=== PATIENT | female | born 2005 | race Caucasian/White ===

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

== ENCOUNTER 2024-05-31 23:22 | Emergency (ER) | payer OTHER, SELFPAY ==
--- OUTSIDE RECORDS SUMMARY | 2024-06-01 00:30 | XMS_ITS | Continuity of Care Document ---
Author Organization [facility] Address [address] [place] [id number]- Care Team Providers Care High School Football Coach Name Role Phone Heena Lopez MD Primary Care Physician Encounter [facility] Date(s): 05/29/22 - 07/11/[address] [address] Attending Physician: Not on Staff, Attending MD Referring Physician: Heena Lopez MD Allergies, Adverse Reactions, Alerts No Known Allergies Immunizations Given and Recorded Vaccine Date Status Refusal Reason influenza virus vaccine, inactivated 07/09/22 Give n Medications azithromycin 500 mg oral tablet 2 tablet = 1,000 mg, By Mouth, Once, # 2 tablet, 0 Refills, Soft Stop, 07/10/22 22:28:00 EDT, Tablet, [id number], Partial fill upon patient request if the prescription is for a schedule II opioid drug., 164.5, cm, 07/09/22 13:04:00 EDT, Height... Start Date: 07/10/22 Status: Ordered clotrimazole 1% topical cream 1 application, Topically, Daily at bedtime, # 45 Gm, 0 Refills, Maintenance, 07/10/22 13:16:00 EDT,Cream, [id number], Partial fill upon patient request if the prescription is for a schedule II opioid drug., 1 application Topically Daily at be... Start Date: 07/10/22 Stop Date: 07/17/22 Status: Ordered Expedited partner treatment: Azithromycin 1gm PO once Expedited partner treatment: Azithromycin 1gm PO once, See Instructions, # 1 each, Refills 0, Tot. Refills 0, Maintenance, Expedited partner treatment, 03/06/21 13:39:00 EDT, Supply Start Date: 03/06/21 Status: Ordered Multivitamins with Folic Acid 1 mg oral tablet 1 tablet, By Mouth, Daily, # 30 tablet, 0 Refills, Maintenance, 07/09/22 13:04:00 EDT, Tablet, Partial fill upon patient request if the prescription is for a schedule II opioid drug. Start Date: 07/09/22 Status: Ordered Problem List Condition Confirmation Course Effective Dates Status Health St atus Informant Confirmed Active Intrauterine in teenager Confirmed Active Maternal varicella, non-immune Confirmed Active Social History Social History Type Response Smoking Status Never (less than 100 in lifetime); Tobacco user in household: No entered on: 03/04/21 Sex Patient Care team information Personnel Name: Heena Lopez MD Address: Address: [address] [place] [address] [facility] [id number]
--- OUTSIDE RECORDS SUMMARY | 2024-06-01 00:30 | XMS_ITS | Continuity of Care Document ---
Author Organization [facility] Address [address] [place] [address]- Care Team Providers Care Spiritual Care Coordinator Name Role Phone Rounds Heena STANTON Primary Care Physician Encounter [facility] [place] Date(s): 10/17/21 - 10/17/[address] [address]- Discharge Disposition: A-D/C Walkout Attending Physician: Not on Staff, Attending MD Admitting Physician: Not on Staff, Admitting MD Referring Physician: Not on Staff, Referring MD Allergies, Adverse Reactions, Alerts No Known Allergies Medications Expedited partner treatment: Azithromycin 1gm PO once Expedited partner treatment: Azithromycin 1gm PO once, See Instructions, # 1 each, Refills 0, Tot. Refills 0, Maintenance, Expedited partner treatment, 03/06/21 13:39:00 EDT, Supply Start Date: 03/06/21 Status: Ordered Vital Signs Most recent to oldest [Reference Range]: 1 Oxygen Saturation [94-100 %] 99 % (10/17/21 3:07 AM) Pulse Rate [55-90 bpm] 75 bpm (10/17/21 3:07 AM) Blood Pressure [71-110/30-71 mm Hg] 124/ 81mm Hg *H* (10/17/21 3:07 AM) Respiratory Rate [16-30 br/min] 17 br/mi n (10/17/21 3:07 AM) Temperature [96.8-100.4 DegF] 98.7 DegF (10/17/21 3:07 AM) Mode of Delivery (Oxygen) Room air (10/17/21 3:07 AM) Blood pressure sites Arm, left (10/17/21 3:07 AM) Temperature Route Oral (10/17/21 3:07 AM) Social History Social History Type Response Smoking Status Never (less than 100 in lifetime); Tobacco user in household: No entered on: 03/04/21 Sex
--- OUTSIDE RECORDS SUMMARY | 2024-06-01 00:30 | XMS_ITS | Continuity of Care Document ---
Author Organization [facility] Address [address] [place] [phone]- Care Team Providers Care Senior Credit Officer Name Role Phone Rounds Heena STANTON Primary Care Physician Encounter [facility] [place] Date(s): 08/29/22 - 09/28/[address] [address] Allergies, Adverse Reactions, Alerts No Known Allergies [...] EDT, Height... Start Date: 07/10/22 Status: Ordered azithromycin 500 mg oral tablet 2 tablet = 1,000 mg, By Mouth, Daily, # 2 tablet, 0 Refills, Maintenance, 08/29/22 16:48:00 EST, Tablet, [id number], Partial fill upon patient request if the prescription is for a schedule IIopioid drug., 164.5, cm, 08/28/22 15:05:00 EST, Hei... Start Date: 08/29/22 Status: Ordered clotrimazole 1% topical cream 1 [...] EDT, Supply Start Date: 03/06/21 Status: Ordered ferrous sulfate 325 mg oral tablet 1 tablet = 325 mg, By Mouth, Daily, # 90 tablet, 1 Refills, Maintenance, 09/04/22 16:45:00 EST, Tablet, [facility]/pharmacy #[id number], Partial fill upon patient request if the prescription is for a schedule II opioid drug., 164.5, cm, 08/28/22 15:05:00 EST, Heig... Start Date: 09/04/22 Status: Ordered Multivitamins with Folic Acid 1 mg oral tablet 1 tablet = 1 mg, By Mouth, Daily, # 30 tablet, 3 Refills, Maintenance, 08/28/22 15:16:00 EST, Tablet, [facility] #[id number], Partial fill upon patient request if the prescription is for a schedule II opioid drug., 1 tablet By Mouth Daily, 164.5, cm, 08/09... Start Date: 08/28/22 Status: Ordered Tums 500 mg oral tablet, chewable 500 mg, 1, tablet, Chew, 2 times a day, # 65 tablet, Refills 3, Tot. Refills 3, Maintenance, 09/24/22 15:08:00 EST, Route to Pharmacy Electronically, [facility]/pharmacy #[id number], Partial fill upon patient request if the prescription is for a schedule II opioid... Start Date: 09/24/22 Status: Ordered Problem List Condition Confirmation Course Effective Dates Status Health St atus Informant Confirmed Active Intrauterine in teenager Confirmed Active Maternal varicella, non-immune Confirmed Active Social History Social History Type Response Smoking Status Never (less than 100 in lifetime); Tobacco user in household: No entered on: 03/04/21 Sex Female Patient Care team information Care Team Personnel Name: Heena Lopez MD Position: [facility] General Pediatrics MD Member Role: PCP Address: Address: [address] [place] [address] [place] [id number]- Care Team Related Persons Name: BERHANE VENTURA Address: home [address] [place] [address] Name: GREGOR VENTURA Address: [address] [place] [address]
--- OUTSIDE RECORDS SUMMARY | 2024-06-01 00:30 | XMS_ITS | Continuity of Care Document ---
Author Organization [facility] Address [address] [place] [id number]- Care Team Providers Care Oracle Obiee Developer Name Role Phone Rounds Heena STANTON Primary Care Physician Encounter [facility] [place] Date(s): 07/18/22 - 11/15/[address] [address] Attending Physician: Not on Staff, Attending MD Allergies, Adverse Reactions, Alerts No Known Allergies Immunizations Given and Recorded Vaccine Date Status Refusal Reason influenza virus vaccine, inactivated 07/09/22 Give n Medications Colace sodium 100 mg oral capsule 100 mg, 1, capsule, By Mouth, 2 times a day, PRN, # 20 capsule, Refills 0, Tot. Refills 0, Maintenance, for constipation, 10/30/22 6:43:00 EST, Route to Pharmacy Electronically, [facility]/pharmacy #[id number], Partial fill upon patient request if the prescription... Start Date: 10/30/22 Status: Ordered Multivitamins with Folic Acid 1 mg oral tablet 1 tablet = 1 mg, By Mouth, Daily, # 30 tablet, 3 Refills, Maintenance, 08/28/22 15:16:00 EST, Tablet, [facility]/pharmacy #[id number], Partial fill upon patient request if the prescription is for a schedule II opioid drug., 1 tablet By Mouth Daily, 164.5, cm, 08/09... Start Date: 08/28/22 Status: Ordered Tums 500 mg oral tablet, chewable 500 mg, 1, tablet, Chew, 2 times a day, # 65 tablet, Refills 3, Tot. Refills 3, Maintenance, 09/24/22 15:08:00 EST, Route to Pharmacy Electronically, [facility]/pharmacy #[id number], Partial fill upon patient request if the prescription is for a schedule II opioid... Start Date: 09/24/22 Status: Ordered Problem List Condition Confirmation Course Effective Dates Status Health St atus Informant Marginal insertion of umbilical cord affecting management of mother Confirmed Active Anemia Confirmed Active GERD (gastroesophageal reflux disease) Confirmed Active History of appendectomy Confirmed Active Late care Confirmed Active Marijuana smoker Confirmed Active Confirmed Active Confirmed Active Intrauterine in teenager Confirmed Active Maternal varicella, non-immune Confirmed Active Social History Social History Type Response Smoking Status Never (less than 100 in lifetime); Tobacco user in household: No entered on: 03/04/21 Sex Patient Care team information Care Team Personnel Name: Heena Lopez MD Position: [facility] General Pediatrics MD Member Role: PCP Address: Address: [address] [place] [address] [place] [address]- Care Team Related Persons Name: AGNIESZKA FRANCISCO Address: [facility] Address: home [address] [place] [address] Name: BERHANE EVNTURA Address: home [address] [place] [id number] Name: GREGOR VENTURA Address: [address] [address]
--- OUTSIDE RECORDS SUMMARY | 2024-06-01 00:30 | XMS_ITS | Continuity of Care Document ---
Author Organization [facility] Address [address] [place] [address]- Care Team Providers Care Taproom Attendant Name Role Phone Rounds Heena STANTON Primary Care Physician [phone] Encounter [facility] Date(s): 08/29/22 - 09/28/[address] [address] Allergies, Adverse Reactions, Alerts No Known [...] 1 Refills, Maintenance, 09/04/22 16:45:00 EST, Tablet, [id number], Partial fill upon patient request if the prescription is for a schedule II opioid drug., 164.5, cm, 08/28/22 15:05:00 EST, Heig... Start Date: 09/04/22 Status: Ordered Multivitamins with Folic Acid 1 mg oral tablet 1 tablet = 1 mg, By Mouth, Daily, # 30 tablet, 3 Refills, Maintenance, 08/28/22 15:16:00 EST, Tablet, [id number], Partial fill upon patient request if the prescription is for a schedule II opioid drug., 1 tablet By Mouth Daily, 164.5, cm, 08/09... Start Date: 08/28/22 Status: Ordered Tums 500 mg oral tablet, chewable 500 mg, 1, tablet, Chew, 2 times a day, # 65 tablet, Refills 3, Tot. Refills 3, Maintenance, 09/24/22 15:08:00 EST, Route to Pharmacy Electronically, [facility]/pharmacy #[id number], Partial fill upon patient request if [...] Team Personnel Name: Heena Lopez MD Position: [facility] General Pediatrics MD Member Role: PCP Address: Address: [address] [place] [address] [place] [address]- Care Team Related Persons Name: BERHANE VENTURA Address: home [address] [place] [id number] Name: GREGOR VENTURA Address: [address] [address]
--- OUTSIDE RECORDS SUMMARY | 2024-06-01 00:30 | XMS_ITS | Continuity of Care Document ---
Author Organization [facility] Address [address] [place] [address]- Care Team Providers Care Mental Health Worker Name Role Phone Rounds Heena STANTON Primary Care Physician [phone] Encounter [facility] Date(s): 08/22/21 - 09/21/[address] [address] Allergies, Adverse Reactions, Alerts No Known Allergies Medications Expedited partner treatment: Azithromycin 1gm PO once Expedited partner treatment: Azithromycin 1gm PO once, See Instructions, # 1 each, Refills 0, Tot. Refills 0, Maintenance, Expedited partner treatment, 03/06/21 13:39:00 EDT, Supply Start Date: 03/06/21 Status: Ordered Social History Social History Type Response Smoking Status Never (less than 100 in lifetime); Tobacco user in household: No entered on: 03/04/21 Sex
--- OUTSIDE RECORDS SUMMARY | 2024-06-01 00:30 | XMS_ITS | Continuity of Care Document ---
Author Organization [facility] ter Address [address] [place] [phone]- Care Team Providers Care Base Loader Name Role Phone Rounds Heena STANTON Primary Care Physician Encounter [facility] [place] Date(s): 02/03/23 - 02/03/[address] [address]- Discharge Disposition: A-D/C Walkout Attending Physician: Not [...] 10/30/22 6:43:00 EST, Route to [facility]acy Electronically, [id number], Partial fill upon patient request [...] 09/24/22 15:08:00 EST, Route to Pharmacy Electronically, [id number], Partial fill upon patient request [...] Confirmed Active Maternal varicella, non-immune Confirmed Active Vital Signs Most recent to oldest [Reference Range]: 1 2 3 Oxygen Saturation [94-100 %] 99 % (02/03/23 12:30 PM) 98 % (02/03/23 10:29 AM) 97 % (02/03/23 10:25 AM) Pulse Rate [55-90 bpm] 100 bpm *H* (02/03/23 12:30 PM) 97 bpm *H* (02/03/23 10:29 AM) 114 bpm *H* (02/03/23 10:25 AM) Blood Pressure [90-138/55-84 mm Hg] 135/80mm Hg (02/03/23 12:30 PM) 130/83mm Hg (02/03/23 10:29 AM) Respiratory Rate [16-30 br/min] 18 br/min (02/03/23 12:30 PM) 17 br/min (02/03/23 10:29 AM) 18 br/min (02/03/23 10:25 AM) Temperature [96.8-100.4 DegF] 97.9 DegF (02/03/23 12:30 PM) 97.7 DegF (02/03/23 10:29 AM) Mode of Delivery (Oxygen) Room air (02/03/23 12:30 PM) Room air (02/03/23 10:29 AM) Room air (02/03/23 10:25 AM) Blood pressure sites Arm, right (02/03/23 12:30 PM) Arm, right (02/03/23 10:29 AM) Temperature Route Oral (02/03/23 12:30 PM) Oral (02/03/23 10:29 AM) Social History Social History Type Response Smoking Status Never (less than 100 in lifetime); Tobacco user in household: No entered on: 03/04/21 Sex Patient Care team information Care Team Personnel Name: Heena Lopez MD Position: [facility] General Pediatrics MD Member Role: PCP Address: Address: [address] [place] [address] [place] [address]- Care Team Related Persons Name: AGNIESZKA FRANCISCO Address: AMER[employer] Address: home [address] [place] [address] [place] Name: BERHANE VENTURA Address: home [address] [place] [address] Name: GREGOR VENTURA Address: home [address] [place] [address]
--- OUTSIDE RECORDS SUMMARY | 2024-06-01 00:30 | XMS_ITS | Continuity of Care Document ---
Author Organization [facility] Address [address] [place] [address]- Care Team Providers Care Paediatric Surgeon Name Role Phone Rounds Heena STANTON Primary Care Physician [place] [facility] [place] - 11/29/[address] [address] Attending Physician: Not on Staff, Attending [...] 10/30/22 6:43:00 EST, Route to Pharmacy Electronically, [facility]/pharmacy #[id number], Partial fill upon patient request if the prescription... Start Date: 10/30/22 Status: Ordered Multivitamins with Folic Acid 1 mg oral tablet 1 tablet = 1 mg, By Mouth, Daily, # 30 tablet, 3 Refills, Maintenance, 08/28/22 15:16:00 EST, Tablet, [facility]/pharmacy #[id number], Partial fill upon patient request if the prescription is for a schedule II opioid drug., 1 tablet By Mouth Daily, 164.5, cm, 08/09... Start Date: 08/28/22 Status: Ordered Tums 500 mg oral tablet, chewable 500 mg, 1, tablet, Chew, 2 times a day, # 65 tablet, Refills 3, Tot. Refills 3, Maintenance, 09/24/22 15:08:00 EST, Route to Pharmacy Electronically, [facility]/pharmacy #[id number], Partial fill upon patient request [...] Team Personnel Name: Heena Lopez MD Position: [facility] General Pediatrics MD Member Role: PCP Address: Address: [address] [place] [address] [place] [address]- Care Team Related Persons Name: AGNIESZKA FRANCISCO Address: AMER[employer] Address: home [address] [place] [address] Name: BERHANE VENTURA Address: home [address] [place] [id number] Name: GREGOR VENTURA Address: [address] [address]
--- OUTSIDE RECORDS SUMMARY | 2024-06-01 00:31 | XMS_ITS | Continuity of Care Document ---
Author Organization [facility] Address [address] [place] [address]- Care Team Providers Care Dough Catcher Name Role Phone Rounds Heena STANTON Primary Care Physician [phone] [place] [facility] [place] 12/06/[address] [address] Attending Physician: Not on Staff, [...] 10/30/22 6:43:00 EST, Route to Pharmacy Electronically, [facility]/pharmacy #[id number], Partial fill upon patient request if the prescription... Start Date: 10/30/22 Status: Ordered Multivitamins with Folic Acid 1 mg oral tablet 1 tablet = 1 mg, By Mouth, Daily, # 30 tablet, 3 Refills, Maintenance, 08/28/22 15:16:00 EST, Tablet, [facility]/pharmacy #[id number], Partial fill upon patient request if the prescription is for a schedule II opioid drug., 1 tablet By Mouth Daily, 164.5, cm, 08/09... Start Date: 08/28/22 Status: Ordered Tums 500 mg oral tablet, chewable 500 mg, 1, tablet, Chew, 2 times a day, # 65 tablet, Refills 3, Tot. Refills 3, Maintenance, 09/24/22 15:08:00 EST, Route to Pharmacy Electronically, [facility]/pharmacy #[id number], Partial fill upon patient request [...] Team Personnel Name: Heena Lopez MD Position: [facility] General Pediatrics MD Member Role: PCP Address: Address: [address] [place] [address] [place] [address]- Care Team Related Persons Name: AGNIESZKA FRANCISCO Address: [employer] Address: home [address] [place] [address] Name: BERHANE VENTURA Address: home [address] [place] [address] Name: GREGOR VENTURA Address: [address] [address]
--- OUTSIDE RECORDS SUMMARY | 2024-06-01 00:31 | XMS_ITS | Continuity of Care Document ---
Author Organization [facility] Address [address] [place] [address]- Care Team Providers Care Division Supervisor Name Role Phone Rounds Heena STANTON Primary Care Physician [place] [facility] [place] [facility] [place] 03/26/22 - 04/25/[address] [address]- Attending Physician: Fernanda Chou Admitting Physician: Fernanda Chou Referring Physician: AdmtrFernanda Allergies, Adverse Reactions, Alerts No Known Allergies Medications Expedited partner treatment: Azithromycin 1gm PO once Expedited partner treatment: Azithromycin 1gm PO once, See Instructions, # 1 each, Refills 0, Tot. Refills 0, Maintenance, Expedited partner treatment, 03/06/21 13:39:00 EDT, Supply Start Date: 03/06/21 Status: Ordered Unisom 25 mg oral tablet 1 tablet = 25 mg, By Mouth, Daily, 15 to 30 minutes before bed, # 30 tablet, 1 Refills, Acute 05/20/22 14:40:00 EDT, 03/19/22 14:40:00 EDT, Tablet, [id number], Partial fill upon patient request if the prescription is for a schedule II opioid d... Start Date: 03/19/22 Stop Date: 05/20/22 Status: Ordered Vitamin B6 25 mg oral tablet 1 tablet = 25 mg, By Mouth, 3 times a day, # 100 tablet, 1 Refills, Acute 05/20/22 14:41:00 EDT, 03/19/22 14:40:00 EDT, [id number], Partial fill upon patient request if the prescription is for a schedule II opioid drug., 164.5, cm, 03/06/21 12... Start Date: 03/19/22 Stop Date: 05/20/22 Status: Ordered Social History Social History Type Response Smoking Status Never (less than 100 in lifetime); Tobacco user in household: No entered on: 03/04/21 Sex
--- OUTSIDE RECORDS SUMMARY | 2024-06-01 00:31 | XMS_ITS | Continuity of Care Document ---
Author Organization [facility] Address [address] [place] [address]- Care Team Providers Care Compensation Advisor Name Role Phone Rounds Heena STANTON Primary Care Physician [phone] En[place] [facility] [place] Date(s): 10/30/22 - 01/22/[address] [address] Attending Physician: Not on Staff, Attending MD Admitting Physician: Eileen Laughlin CNM Allergies, Adverse Reactions, Alerts No Known Allergies Immunizations Given and Recorded Vaccine Date Status Refusal Reason influenza virus vaccine, inactivated 07/09/22 Give n Medications Colace sodium 100 mg oral capsule 100 mg, 1, capsule, By Mouth, 2 times a day, PRN, # 20 capsule, Refills 0, Tot. Refills 0, Maintenance, for constipation, 10/30/22 6:43:00 EST, Route to Pharmacy Electronically, [facility]/pharmacy #[id number], Partial fill upon patient [...] 09/24/22 15:08:00 EST, Route to Pharmacy Electronically, [facility]/pharmacy #[id number], Partial fill upon patient request if the [...] Team Personnel Name: Heena Lopez MD Position: [facility] General Pediatrics MD Member Role: PCP Address: Address: [address] [place] [address] [place] [address]- Care Team Related Persons Name: AGNIESZKA FRANCISCO Address: [employer] Address: [address] [address] [place] Name: BERHANE VENTURA Address: home [address] [place] [address] Name: GREGOR VENTURA Address: [address] [address]
--- OUTSIDE RECORDS SUMMARY | 2024-06-01 00:31 | XMS_ITS | Continuity of Care Document ---
Author Organization [facility] Address [address] [place] [address]- Care Team Providers Care Visual Aid Expert Name Role Phone Rounds Heena STANTON Primary Care Physician Encounter [facility] [place] Date(s): 02/26/22 - 04/25/[address] [address]- Attending Physician: Not on Staff, Attending MD [...]
--- OUTSIDE RECORDS SUMMARY | 2024-06-01 00:31 | XMS_ITS | Continuity of Care Document ---
Author Organization [facility] ter Address [address] [place] [address]- Care Team Providers Care Outer Diameter Grinder Tool Name Role Phone Rounds Heena STANTON Primary Care Physician [place] [facility] [place] - 08/14/[address] [address]- Discharge Disposition: A-D/C Home Attending Physician: Danna Smith MD Admitting Physician: Danna Smith MD Referring Physician: Danna Smith MD Allergies, Adverse Reactions, Alerts No Known [...] recent to oldest [Reference Range]: 1 2 Weight 80.7 kg (08/14/22 4:03 PM) Oxygen Saturation [94-100 %] 100 % (08/14/22 4:16 PM) Pulse Rate [55-90 bpm] 92 bpm *H* (08/14/22 4:16 PM) Blood Pressure [90-138/55-84 mm Hg] 111/ 66mm Hg (08/14/22 4:16 PM) Respiratory Rate [16-30 br/min] 20 br/mi n (08/14/22 4:16 PM) Temperature [96.8-100.4 DegF] 98 DegF (08/14/22 4:16 PM) 98.1 DegF (08/14/22 4:03 PM) Temperature Route Oral (08/14/22 4:16 PM) Oral (08/14/22 4:03 PM) Weight Obtained Via Standing scale (08/14/22 4:03 PM) Weight Percentile Per Age 94.41 % 1 (08/14/22 4:03 PM) Weight ZScore 1.59 2 (08/14/22 4:03 PM) 1Result Comment: ^~:!Percentile Source -CDC/WHO 2Result Comment: ^~:!ZScore Source -CDC/WHO Social History Social History Type Response Smoking Status Never (less than 100 in lifetime); Tobacco user in household: No entered on: 03/04/21 Sex History and physical note * Nitza Rodas CNM: PERFORM Event Display: History and Physical Hospital Authored Date: Patient: ??RIVERA, DIYANNE ? Age:??17 Years?Sex:??Female?:??2005?? OB Reason for Admission OB Reason for Admission?? No qualifying data available. LMP/EGA/ANISH Gestational Age (EGA) and ANISH? * Note: EGA calculated as of 08/14/2022 ?? ANISH:??11/02/2022?EGA*:??28 weeks 4 days ? History?(0,0,0,0)?Method:??Last Menstrual Period??(01/26/2022) History of Present Illness pt here for dfm. pt also reported spotting but that was several days ago when she was diagnoses with yeast.?? She has not had any further spotting or cramping since then. Review of Systems ros all negative except as above Physical Exam Vitals & Measurements T:??98?F ?? DC:??92?? RR:??20?? BP:??111/66?? SpO2:??100%?? WT:??80.7??kg? General: ??Within normal limits.? Abdomen/GI: ??Within normal limits,? Abdomen Description: Gravid, Non-tender.? Musculoskeletal: ??Within normal limits. ?? Extremities: ??Within normal limits, Extremities, 2+ Reflexes, no clonus ? Edema: Upper Extremities, Lower Extremities.? OB Assessment Non Stress Test ?? Baby:??A Heart Rate: Rate??135 bpm Variability:??Moderate Acceleration:??Present Deceleration:??Absent Contractions:??none ?? Comments: _ Assessment/Plan a-s=d ? reactive nst, dfm resolved ? obstetrically stable p-nst ? discussed normal vs abnormal warning s & sx and when to call provider ? pt to keep next appt ? discussed with dr sheridan and discharge pt to home OB History History?(0,0,0,0)?No previous pregnancies history have been recorded Labs Labs Labs & Tests ABO: O (05/29/22) Antibody Screen: Negative (05/29/22) Chlamydia Trachomatis Amplified Probe: POSITIVE Abnormal (07/09/22) Hct: 35.9 % (05/29/22) Hemoglobinopathy Interpretation: Normal hemoglobins. (05/29/22) Hepatitis B Surface Antigen: NEGATIVE (05/29/22) Hepatitis C Ab: NEGATIVE (05/29/22) Hgb: 12 Gm/dL (05/29/22) HIV 4th Generation Ab-Ag Result: NEGATIVE (05/29/22) RH Test Only: Positive (05/29/22) RPR Titer Result: NOT INDICATED (05/29/22) Rubella IgG Ab: POSITIVE (05/29/22) Syphilis Screen by ALEX: NEGATIVE (05/29/22) Urine Culture: Urine Culture (05/29/22) Varicella IgG Ab: NEGATIVE (05/29/22) Problem List Active Active Problem List Intrauterine in teenager: (Medical) Maternal varicella, non-immune: (Medical) : (Obstetric) (01/26/22) : (Medical) Procedure/Surgical History Appendectomy: 03 Home Medications Azithromycin: 1,000 mg = 2 tablet, By Mouth, Once Clotrimazole Topical: 1 application, Topically, Daily at bedtime Miscellaneous Rx (Expedited partner treatment: Azithromycin 1gm PO once): See Instructions, Expedited partner treatment Multivitamin, : 1 tablet, By Mouth, Daily Allergies NKA Social History Alcohol Use: Never., 03/04/2021 Electronic Cigarette/Vaping Electronic Cigarette Use: Never., 05/29/2022 Employment/School Status: Student. Other: [employer]., 05/29/2022 Exercise Self assessment: Fair condition., 05/29/2022 Home/Environment Living situation: Home/Independent. Lives with: Significant other. Feels unsafe at home: No., 05/29/2022 Nutrition/Health Diet: Regular., 05/29/2022 Sexual Sexually involved in last 6 months: Yes., 03/04/2021 Substance Abuse Use: pt stopped 3 days ago. Type: Marijuana. Frequency: 3-5 times per week., 03/04/2021 Tobacco Use: Never (less than 100 in lifetime). Tobacco user in household: No., 03/04/2021 Family History No positive family history reported. Plan No Data Found Note * Kassidy Newberry RN: PERFORM Event Display: Discharge/Transfer Note Hospital Authored Date: [id number] Nursing Discharge Note Entered On: 08/14/2022 18:28 EST Performed On: 08/14/2022 18:28 EST by Kassidy Newberry RN Nursing Discharge Note 2 Discharge Time : 08/14/2022 18:28 EST Discharge Level of Care at Discharge : Home/Half-Way/Foster Care Patient Left Unit Via : Ambulatory Patient Accompanied Off Unit with : Other: self DC Instructions Provided & Signed by Pt : Yes Patient Understands D/C Instructions : Yes Patient Instructions Discharge Signed : Yes Did Pt have Specialty Bed or Wound Vac : No Kassidy Newberry RN - 08/14/2022 18:28 EST * Kassidy Newberry RN: PERFORM Event Display: Patient Education/Instruction Authored Date: [id number] Inpatient Adult Discharge Instructions [address] [address] Name: SCOTTY RIVERA : 2005 Visit: 08/14/2022 15:29:00 Current Date: 08/14/2022 18:05 Account: [id number] Inpatient Adult Discharge Instructions We would like to thank you for allowing us to assist you with your healthcare needs. The following includes patient education materials and information regarding your injury/illness. Our entire staffstrives to provide an excellent experience for our patients and their families. PLEASE ENSURE YOU FOLLOW-UP PER THE INSTRUCTIONS BELOW! ?? YOUR OPINION IS IMPORTANT TO US! Please complete the survey you may receive by mail or email. Your feedback will be used to make improvements to the healthcare experiences of our patients and their families. Surveys are administered by [employer] ?? If further treatment with your primary care physician or another doctor is recommended, it is important for you to keep the appointment. Call your primary care physician or return to the Emergency Department immediately if your condition worsens, fails to improve, or new symptoms develop. If you need to find a doctor, you can call [facility] for a referral at [phone] or toll free at [phone] ([phone]) or log in to [email or web address].. ?? You can view and manage your care through the patient portal or by using a health care eugenia of your choosing. [employer] is a website that allows you to securely view your medical information including your hospital discharge summary, office visit summaries, medications and follow-up visits. You can also request appointments, renew medications, and request access to your medical information using a health care eugenia of your choosing, or just ask a question. You can enroll at [email or web address] or register during your next office visit. You have been discharged from [facility], Patient Care Unit: [id number]. If you have any questions regarding these instructions after you leave, please call us and we will be happy to assist you. [facility] Your Care Team Attending Physician Luis STANTON, Danna Fernandez Tests Performed Below is a partial list of the tests performed during your hospitalization. You may have had other tests and procedures not included in this list. Please discuss all test results with your provider. Primary Care Provider Heena Lopez MD Advance Directive Health Care Proxy on File No No qualifying data available. Discharge Vitals Temperature: 98 DegF Weight: 80.7 kg Pulse Rate:??92 bpm??High ?? Respiratory Rate: 20 br/min ?? Systolic Blood Pressure: 111 mm Hg ?? Diastolic Blood Pressure: 66 mm Hg ?? Oxygen Saturation: 100 % ?? Studies Pending All tests and labs ordered during this hospital stay have been completed unless listed below. Please discuss all pending results with your provider listed above in these instructions. ?? No incomplete studies found What to do next Instructions From Your Doctor Discharge Orders Scheduled Follow-Up Appointments 2021 1:00 PM EST ?? With: Maura Gold MD Where: [address] - Friday 2:40 PM EST ?? With: Where: [address] - Friday 2:20 PM EST ?? With: Liliya Ervin DO Where: [address] - Friday 2:40 PM EST ?? With: Liliya Ervin DO Where: [address] - Friday 2:40 PM EST ?? With: Francy Sorensen DO Where: [address] - Friday 3:00 PM EST ?? With: Colleen Hanley CNM Where: [address] - Friday 1:40 PM EST ?? With: Colleen Hanley CNM Where: [address] - Friday 1:20 PM EST ?? With: Colleen Hanley CNM Where: [address] - Discharge Medications SCOTTY RIVERA :2005 Visit Date:08/14/2022 Medications: Please continue your medications until treatment is completed or stopped by your provider. Medications not listed below should be discontinued. Discuss any questions related to medications with your provider. What How Much When Why Instructions Next Dose Unchanged Azithromycin (azithromycin 500 mg oral tablet) 2 tab(s) Oral Once Chlamydia Unchanged Clotrimazole Topical (clotrimazole 1% topical cream) 1 eugenia Topically Daily at Bedtime Yeast detected Duration: 7 Days Unchanged Miscellaneous Rx (Expedited partner treatment: Azithromycin 1gm PO once) See instructions Expedited partner treatment ?? Unchanged Multivitamin, ( Multivitamins with Folic Acid 1 mg oral tablet) 1 tab(s) Oral Daily Test Results Below is a partial list of the most recent Laboratory test results done prior to this discharge. You may have had other tests and procedures not included in this list. Please discuss all test resultswith your provider. Allergies (NKA means No Known Allergies) NKA Problems Active Problems??(4) Intrauterine in teenager?? Maternal varicella, non-immune? Education Materials Below is the list of Educational Leaflet Providered with your Discharge Instructions. Understanding Labor?? Kick Counts?? Valuables and Belongings I fully understand and agree that [facility] accepts no responsibility for all my personal property including clothing, toilet articles, radios, jewelry, dentures, hearing aids, rings, money, or any other property that is in my possession or is brought to me after admission. I understand certain valuables may be placed in a hospital safe for a short period of time. I understand that the hospital is not liable for loss or damage due to accident, fire, or other natural occurrence while said property is in the safe. I accept full responsibility for any personal property that I keep with me, and will not hold the hospital responsible in case of loss or disappearance. I acknowledge that i have been encouraged to send valuables and belongings home. ? Other Discharge Information ? Pulmonary Rehab Status?? Pulmonary Rehab Discharge Status?? Respiratory Rate: 20 br/min ? Common Emergency Awareness Tips IS IT A STROKE? Act FAST and Check for these signs: FACE Does the face look uneven? ARM Does one arm drift down? SPEECH Does their speech sound strange? TIME Call at any sign of stroke ?? Heart Attack Signs Chest discomfort: Most heart attacks involve discomfort in the center of the chest and lasts more than a few minutes, or goes away and comes back. It can feel like uncomfortable pressure, squeezing, fullness or pain. Discomfort in upper body: Symptoms can include pain or discomfort in one or both arms, back, neck, jaw or stomach. Shortness of breath: With or without discomfort. Other signs: Breaking out in a cold sweat, nausea, or lightheaded. Remember, MINUTES DO MATTER. If you experience any of these heart attack warning signs, call to get immediate medical attention! ?? Smoking can increase your chances of developing chronic health problems and can cause harmful effects to other family members in your house. If you smoke, you are strongly encouraged to quit. Please call [facility] [employer] Link at [phone] or [phone] (8928) or log in to [email or web address] for referrals to smoking cessation programs. ?? The National Suicide Prevention Hotline is available 31/03 if you or someone you know needs to find a reason to keep living. By calling 9-799-097-[employer] (2013) you'll be connected to a skilled, trained counselor at a crisis center in your area. INPATIENT DISCHARGE INSTRUCTIONS SIGNATURE PAGE SCOTTY RIVERA Location:[facility] Registration Date and Time:08/14/2022 15:29 EST Primary Care Physician: Heena Lopez MD, I SCOTTY RIVERA, have received the above patient education materials/instructions and have verbalized understanding. If ambulance or transport services are being used I further acknowledge beinggiven a choice of service. ?? If you need to contact me, please call me at this number: . Patient/Structural Engineering Drafting Officer Name: Patient/Structural Engineering Drafting Officer Signature: Relationship to Patient: Witness Name/Signature: Date: * Kassidy Newberry RN: PERFORM Event Display: Patient Education Leaflets Authored Date: [id number] Understanding Labor ?? 10915 Understanding Labor Going into labor before week 37 of is called labor. labor can cause your baby to be born too soon. This can lead to health problems for your baby. Before labor, the cervix is thick and closed. In labor, the cervix begins to efface (thin) and dilate (open). Symptoms of labor If you think you???re having labor, get medical help right away. Contractions alone don???tmean you???re in labor. What matters more are changes in your cervix. The cervix is the opening at the lower end of the uterus. Symptoms of labor include: ??? 4 or more contractions per hour ??? Strong contractions ??? Constant menstrual-like cramping ??? Low-back pain ??? Mucous orbloody fluid from the vagina ??? Bleeding or spotting in the second or third trimester ?? Evaluating labor Your??healthcare provider??will try to find out if you???re in labor or just having contractions. They may watch you for a few hours. You may have these tests: ??? Pelvic exam. This is??to see if your cervix has effaced (thinned) and dilated (opened). ??? Uterine activity monitoring. This is used??to detect contractions. ??? monitoring. This is??done to check the health of your baby. ??? Ultrasound. This test looks at your baby???s size and position. ??? Amniocentesis. This test??checks how mature your baby???s lungs are. ?? Caring for yourself at home If you have contractions, but your cervix is still thick and closed, your healthcare provider may tell you to: ??? Drink plenty of water. ??? Do fewer activities. ??? Rest in bed on your side. ??? Don't have intercourse or stimulate your nipples. ?? When to call your healthcare provider Call your healthcare provider if you have any of these: ??? 4 or more contractions per hour ??? Bagof water breaks ??? Bleeding or spotting ?? If you need hospital care labor often means that you need hospital care. You may need complete bed rest. You may havean IV (intravenous) line in your arm or hand. This is to give you fluids. You may be given pills orinjections. These are done to help prevent contractions. You may get a medicine called a corticosteroid.??This is to help your baby???s lungs mature more quickly. ?? Are you at risk? Any woman can have labor. It may start for no reason. But these risk factors can increase your chances: ??? Past labor or early ??? Smoking, drug, or alcohol use in ??? A multiple (twins or more) ??? Problems with the shape of the uterus ??? Bleeding during the ?? The dangers of A baby born too soon may have health problems. This is because the baby didn???t have enough time to grow. Some of the risks for your baby include: ??? Not or feeding well ??? Having immature lungs ??? Bleeding in the brain ? Reaching term Your goal is to get as close to term (week 37 or later) as you can before giving . The closer you get to term, the??higher your chance of having a healthy baby. Work with your healthcare provider. Together, you can take steps that may keep you from giving too early. ?? Last Reviewed Date: 2021 ?? 9521-3961 [employer]. All rights reserved. This information is not intended as a substitute for professional medical care. Always follow your healthcare professional's instructions. ?? * Kassidy Newberry RN: PERFORM Event Display: Patient Education Leaflets Authored Date: [id number] Kick Counts ?? 14038 Kick Counts It???s normal to worry about your baby???s health. One way you can know??your baby???s doing well is to record the baby???s movements once a day. This is called a kick count. ??Remember to take your kick count records to all your appointments with your healthcare provider. How to count kicks Time how long it takes you to feel 10 kicks, flutters, swishes, or rolls. Ideally, you want to feelat least 10 movements in 2 hours. You will likely feel 10 movements in less time than that. Starting at 28 weeks, count your baby's movements daily. Follow your healthcare provider's instructions for kick counting. Here are tips for counting kicks: ??? Choose a time when the baby is active,such as after a meal.? Sit comfortably or lie on your side.? The first time the baby moves,??write down??the time.? Count each movement until the baby has moved?? 10??times. This can take from 20 minutes to 2??hours.? If you haven't felt 10 kicks by the end of the second hour, wait a few hours. Then try again. ??? Try to do it at the same time each day. ?? When to call your healthcare provider Call your healthcare provider?? right away??if: ??? You do a couple sets of kick counts during the day and your baby moves fewer than 10??times in??2??hours. ??? Your baby moves much less often than on the??days before. ??? You haven't felt your baby move all day. ?? Last Reviewed Date: 2020 ?? [id number] [employer]. All rights reserved. This information is not intended as a substitute for professional medical care. Always follow your healthcare professional's instructions. ?? Patient Care team information Care Team Personnel Name: Heena Lopez MD Position: [facility] General Pediatrics Member Role: PCP Address: Address: [address] [place] [address] [place] [address]- Care Team Related Persons Name: BERHANE VENTURA Address: home [address] [place] [address] Name: GREGOR VENTURA Address: [address] [address]
--- OUTSIDE RECORDS SUMMARY | 2024-06-01 00:31 | XMS_ITS | Continuity of Care Document ---
Author Organization [facility] Address [address] [place] [address]- Care Team Providers Care Dock Operations Supervisor Name Role Phone Rounds Heena STANTON Primary Care Physician Encounter [facility] [place] Date(s): 03/19/22 - 04/18/[address] [address]- Allergies, Adverse Reactions, Alerts No Known Allergies [...]
--- OUTSIDE RECORDS SUMMARY | 2024-06-01 00:31 | XMS_ITS | Continuity of Care Document ---
Author Organization [facility] Address [address] [place] [address]- Care Team Providers Care Call Manager Name Role Phone Rounds Heena STANTON Primary Care Physician [place] [facility] [place] - 09/28/[address] [address] Allergies, Adverse Reactions, Alerts No Known Allergies [...] 1 Refills, Maintenance, 09/04/22 16:45:00 EST, Tablet, [facility]/pharmacy #[id number], Partial fill upon patient request if the prescription is for a schedule II opioid drug., 164.5, cm, 08/28/22 15:05:00 EST, Heig... Start Date: 09/04/22 Status: Ordered Multivitamins with Folic Acid 1 mg oral tablet 1 tablet = 1 mg, By Mouth, Daily, # 30 tablet, 3 Refills, Maintenance, 08/28/22 15:16:00 EST, Tablet, [facility]/pharmacy #[id number], Partial fill upon patient request if the prescription is for a schedule II opioid drug., 1 tablet By Mouth Daily, 164.5, cm, 08/09... Start Date: 08/28/22 Status: Ordered Tums 500 mg oral tablet, chewable 500 mg, 1, tablet, Chew, 2 times a day, # 65 tablet, Refills 3, Tot. Refills 3, Maintenance, 09/24/22 15:08:00 EST, Route to Pharmacy Electronically, [facility]/pharmacy #[id number], Partial fill upon patient request [...] Personnel Name: Heena Lopez MD Position: [facility] General Pediatrics MD Member Role: PCP Address: Address: [address] [place] [address] [place] [address]- Care Team Related Persons Name: BERHANE VENTURA Address: home [address] [place] [address] Name: GREGOR VENTURA Address: [address] [place] [address]
--- OUTSIDE RECORDS SUMMARY | 2024-06-01 00:31 | XMS_ITS | Continuity of Care Document ---
Author Organization [facility] Address [address] [place] [address]- Care Team Providers Care Gravure Press Operator Name Role Phone Rounds Heena STANTON Primary Care Physician [place] [facility] [place](s[place] 12/24/22 - 01/31/[address] [address] Attending Physician: Eileen Laughlin CNM Admitting Physician: Eileen Laughlin CNM Allergies, Adverse [...] 10/30/22 6:43:00 EST, Route to Pharmacy Electronically, [facility]/pharmacy #[id number], Partial fill upon patient [...] 09/24/22 15:08:00 EST, Route to Pharmacy Electronically, [facility]/pharmacy #[id number], Partial fill upon patient request if the [...] Team Personnel Name: Heena Lopez MD Position: [facility] General Pediatrics MD Member Role: PCP Address: Address: [address] [place] [address] [place] [address]- Care Team Related Persons Name: AGNIESZKA FRANCISCO Address: [employer] Address: [address] [address] [place] Name: BERHANE VENTURA Address: [address] [address] Name: GREGOR VENTURA Address: [address] [address]
--- OUTSIDE RECORDS SUMMARY | 2024-06-01 00:31 | XMS_ITS | Continuity of Care Document ---
Author Organization [facility] Address [address] [address]- Care Team Providers Care Tax Revenue Officer Name Role Phone Rounds Heena STANTON Primary Care Physician [phone] [place] [facility] [place] 07/10/22 - 08/09/22 [facility] [address] [address] Allergies, Adverse Reactions, Alerts No [...] Personnel Name: Heena Lopez MD Position: [facility] General Pediatrics MD Member Role: PCP Address: Address: [address] [place] [address] [place] [address]- Care Team Related Persons Name: BERHANE VENTURA Address: home [address] [place] [address] Name: GREGOR VENTURA Address: [address] [address]
--- OUTSIDE RECORDS SUMMARY | 2024-06-01 00:31 | XMS_ITS | Continuity of Care Document ---
Author Organization [facility] Address [address] [place] [address]- Care Team Providers Care Ophthalmic Medical Technician Name Role Phone Rounds Heena STANTON Primary Care Physician Encounter [facility] Date(s): 06/13/22 - 07/26/[address] [address]- Attending Physician: Kathy Dawson CNM Admitting Physician: Kathy Dawson CNM Referring Physician: Raisa Mohr CNM Allergies, Adverse Reactions, Alerts No Known [...] Team Personnel Name: Heena Lopez MD Position: [facility] General Pediatrics MD Member Role: PCP Address: Address: [address] [place] [address] [place] [address]- Care Team Related Persons Name: BERHANE VENTURA Address: home [address] [place] [address] Name: GREGOR VENTURA Address: home [address] [place] [address]
--- OUTSIDE RECORDS SUMMARY | 2024-06-01 00:31 | XMS_ITS | Continuity of Care Document ---
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 Refills 0, Maintenance, for constipation, 10/30/22 6:43:00 EST, Route to Pharmacy Electronically, [facility]/pharmacy #[id number], Partial fill upon patient request if the prescription... Start Date: 10/30/22 Status: Ordered Multivitamins with Folic Acid 1 mg oral tablet 1 tablet = 1 mg, By Mouth, Daily, # 30 tablet, 3 Refills, Maintenance, 08/28/22 15:16:00 EST, Tablet, [facility]/pharmacy #[id number], Partial fill upon patient request if the prescription is for a schedule II opioid drug., 1 tablet By Mouth Daily, 164.5, cm, 08/09... Start Date: 08/28/22 Status: Ordered Tums 500 mg oral tablet, chewable 500 mg, 1, tablet, Chew, 2 times a day, # 65 tablet, Refills 3, Tot. Refills 3, Maintenance, 09/24/22 15:08:00 EST, Route to Pharmacy Electronically, [facility]/pharmacy #[id number], Partial fill upon patient request if [...] Team Personnel Name: Heena Lopez MD Position: [facility] General Pediatrics MD Member Role: PCP Address: Address: [address] [place] [address] [place] [address]- Care Team Related Persons Name: AGNIESZKA FRANCISCO Address: [employer] Address: [address] [address] [place] Name: BERHANE VENTURA Address: [address] [address] Name: GREGOR VENTURA Address: [address] [address]
--- OUTSIDE RECORDS SUMMARY | 2024-06-01 00:31 | XMS_ITS | Continuity of Care Document ---
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
--- OUTSIDE RECORDS SUMMARY | 2024-06-01 00:31 | XMS_ITS | Continuity of Care Document ---
Author Organization [facility] Address [address] [place] [address]- Care Team Providers Care Horse Racing Manager Name Role Phone Rounds Heena STANTON Primary Care Physician [phone] [place] [facility] Date(s): 08/14/22 - 09/13/[address] [address] Allergies, Adverse Reactions, Alerts No Known [...] cm, 08/09... 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
--- OUTSIDE RECORDS SUMMARY | 2024-06-01 00:31 | XMS_ITS | Continuity of Care Document ---
Author Organization [facility] Address [address] [place] [address]- Care Team Providers Care Nipple Machine Operator Name Role Phone Rounds Heena STANTON Primary Care Physician [phone] [place] [facility] Date(s): 09/04/22 - 10/04/[address] [address] Allergies, Adverse Reactions, Alerts No [...] 09/24/22 15:08:00 EST, Route to Pharmacy Electronically, [facility]/pharmacy #[id number], Partial fill upon patient request [...] Team Personnel Name: Heena Lopez MD Position: [facility] General Pediatrics MD Member Role: PCP Address: Address: [address] [place] [address] [place] [address]- Care Team Related Persons Name: BERHANE VENTURA Address: home [address] [place] [address] Name: GREGOR VENTURA Address: [address] [address]
--- OUTSIDE RECORDS SUMMARY | 2024-06-01 00:31 | XMS_ITS | Continuity of Care Document ---
Author Organization [facility] Address [address] [place] [address]- Care Team Providers Care Salmon Gillnet Vessel Operator Name Role Phone Rounds Heena STANTON Primary Care Physician Encounter [facility] Date(s): 08/09/22 - 09/14/[address] [address] Attending Physician: Not on Staff, Attending [...] Team Personnel Name: Heena Lopez MD Position: [facility] General Pediatrics MD Member Role: PCP Address: Address: [address] [place] [address] [place] [address]- Care Team Related Persons Name: BERHANE VENTURA Address: home [address] [place], [place] Name: GREGOR VENTURA Address: home [address] [place], [place]
--- OUTSIDE RECORDS SUMMARY | 2024-06-01 00:31 | XMS_ITS | Continuity of Care Document ---
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 Refills 0, Maintenance, for constipation, 10/30/22 6:43:00 EST, Route to Pharmacy Electronically, [facility]/pharmacy #[id number], Partial fill upon patient request if [...] 15:08:00 EST, Route to Pharmacy Electronically, [facility]/pharmacy #[id number], Partial fill upon patient request if the [...] Team Personnel Name: Heena Lopez MD Position: [facility] General Pediatrics MD Member Role: PCP Address: Address: [address] [place] [address] [place] [address]- Care Team Related Persons Name: AGNIESZKA FRANCISCO Address: AMER[employer] Address: home [address] [place] [address] [place] Name: BERHANE VENTURA Address: [address] Name: GREGOR VENTURA Address: [address] [address]
--- OUTSIDE RECORDS SUMMARY | 2024-06-01 00:31 | XMS_ITS | Continuity of Care Document ---
Author Organization [facility] Address [address] [place] [address]- Care Team Providers Care Senior Corporate Accountant Name Role Phone Rounds Heena STANTON Primary Care Physician Encounter [facility] Date(s): 07/25/22 - 11/22/[address] [address] Attending Physician: Not on Staff, Attending [...] 6:43:00 EST, Route to Pharmacy Electronically, [facility]/pharmacy #[id number], Partial fill upon patient request if the prescription... Start Date: 10/30/22 Status: Ordered Multivitamins with Folic Acid 1 mg oral tablet 1 tablet = 1 mg, By Mouth, Daily, # 30 tablet, 3 Refills, Maintenance, 08/28/22 15:16:00 EST, Tablet, [facility]/pharmacy #[id number], Partial fill upon patient request if the prescription is for a schedule II opioid drug., 1 tablet By Mouth Daily, 164.5, cm, 08/09... Start Date: 08/28/22 Status: Ordered Tums 500 mg oral tablet, chewable 500 mg, 1, tablet, Chew, 2 times a day, # 65 tablet, Refills 3, Tot. Refills 3, Maintenance, 09/24/22 15:08:00 EST, Route to Pharmacy Electronically, [facility]/pharmacy #[id number], Partial fill upon patient request if [...] Team Personnel Name: Heena Lopez MD Position: [facility] General Pediatrics MD Member Role: PCP Address: Address: [address] [place] [address] [place] [address]- Care Team Related Persons Name: AGNIESZKA FRANCISCO Address: AMER[employer] Address: home [address] [place] [address] Name: BERHANE VENTURA Address: home [address] [place] [address] Name: GREGOR VENTURA Address: [address] [address]
--- OUTSIDE RECORDS SUMMARY | 2024-06-01 00:31 | XMS_ITS | Continuity of Care Document ---
Author Organization [facility] ter Address [address] [place] [id number] Care Team Providers Care Act English Tutor Name Role Phone Rounds Heena STANTON Primary Care Physician [phone] Encounter [facility] [place] Date(s): 10/28/22 - 10/30/[address] [id number] Discharge Disposition: A-D/C Home Attending Physician: Archana Wolfe MD Admitting Physician: Archana Wolfe MD Referring Physician: Archana Wolfe MD Allergies, Adverse Reactions, Alerts No Known Allergies Immunizations Given and Recorded Vaccine Date Status Refusal Reason influenza virus vaccine, inactivated 07/09/22 Give n Medications Acetaminophen Tablet 650 mg, Tablet, By Mouth, Every 4 hours, PRN for Pain , Mild, (1-3), may give 325mg per patient preference and re-dose with 325mg within 4 hours, if needed. Patient should only receive a total of 650mg of Acetaminophen every 4 hours., Routine, 10/28... Start Date: 10/28/22 Stop Date: 10/31/22 Status: Discontinued Colace sodium 100 mg oral capsule 100 mg, 1, capsule, By Mouth, 2 times a day, PRN, # 20 capsule, Refills 0, Tot. Refills 0, Maintenance, for constipation, 10/30/22 6:43:00 EST, Route to Pharmacy Electronically, [facility]/pharmacy #[id number], Partial fill upon patient request if the prescription... Start Date: 10/30/22 Status: Ordered ibuprofen 600 mg oral tablet See Instructions, PRN, 1 tablet taken By Mouth Every 6 hours not to exceed 3200 mg/day, # 60 tablet, Refills 0, Tot. Refills 0, Acute 11/08/22 6:44:00 EST, as needed for pain, 10/30/22 6:43:00 EST, Instructions Replace Required Details, Route to Phar... Start Date: 10/30/22 Stop Date: 11/08/22 Status: Ordered Ibuprofen Tablet 800 mg, Tablet, By Mouth, Every 8 hours, PRN for Pain , Moderate, (4-6), may give 400mg per patientpreference and re-dose with 400mg within 8 hours if needed. Patient should only receive a total of 800mg of Ibuprofen every 8 hours., Routine, ... Start Date: 10/28/22 Stop Date: 10/31/22 Status: Discontinued Multivitamins with Folic Acid 1 mg oral [...] II opioid... Start Date: 09/24/22 Status: Ordered Tylenol 325 mg oral capsule See Instructions, PRN as needed for pain, 2 capsule (650 mg) taken By Mouth Every 4 hours not to exceed 4000 mg/day, # 60 capsule, 0 Refills, Acute 11/10/22 6:44:00 EST, 10/30/22 6:43:00 EST, Capsule, [facility] #[id number], Partial fill upon patient req... Start Date: 10/30/22 Stop Date: 11/10/22 Status: Ordered Problem List Condition Confirmation Course [...] to oldest [Reference Range]: 1 2 3 Height 160 cm (10/30/22 9:15 AM) 160 cm (10/30/22 4:00 AM) 160 cm (10/30/22 12:00 AM) Weight 80.7 kg (10/29/22 8:30 AM) 93 kg (10/28/22 2:37 AM) Oxygen Saturation [94-100 %] 98 % (10/30/22 4:00 AM) 98 % (10/30/22 12:00 AM) 98 % (10/29/22 8:00 PM) Pulse Rate [55-90 bpm] 78 bpm (10/30/22 9:15 AM) 98 bpm *H* (10/30/22 4:00 AM) 89 bpm (10/30/22 12:00 AM) Body Mass Index [18.5-24.99 kg/m2] 31.52 kg/m2 *>HHI* (10/29/22 8:30 AM) 36.33 kg/m2 *>HHI* (10/28/22 2:37 AM) Blood Pressure [90-138/55-84 mm Hg] 117/80mm Hg (10/30/22 11:51 AM) 112/68mm Hg (10/30/22 9:15 AM) 103/55mm Hg (10/30/22 4:00 AM) Respiratory Rate [16-30 br/min] 18 br/min (10/30/22 9:15 AM) 18 br/min (10/30/22 9:02 AM) 18 br/min (10/30/22 9:02 AM) Temperature [96.8-100.4 DegF] 97.8 DegF (10/30/22 9:15 AM) 97.4 DegF (10/30/22 4:00 AM) 98.0 DegF (10/30/22 12:00 AM) Mode of Delivery (Oxygen) Room air (10/28/22 2:37 AM) Room air (10/27/22 9:49 PM) Blood pressure sites Arm, right (10/30/22 9:15 AM) Arm, left (10/28/22 2:37 AM) Arm, right (10/27/22 9:49 PM) Temperature Route Oral (10/30/22 9:15 AM) Oral (10/30/22 4:00 AM) Oral (10/30/22 12:00 AM) Dry Weight 93 kg (10/28/22 2:37 AM) Weight Obtained Via Bed scale (10/30/22 9:15 AM) Bed scale (10/29/22 8:30 AM) Height Percentile 30.66 % 1 (10/30/22 9:15 AM) 30.66 % 2 (10/30/22 4:00 AM) 30.66 % 3 (10/30/22 12:00 AM) Height ZScore -0.51 4 (10/30/22 9:15 AM) -0.51 5 (10/30/22 4:00 AM) -0.51 6 (10/30/22 12:00 AM) Weight Percentile Per Age 97.27 % 7 (10/30/22 9:15 AM) 94.30 % 8 (10/29/22 8:30 AM) 97.84 % 9 (10/28/22 2:37 AM) BMI Percentile 97.36 10 (10/30/22 9:15 AM) 95.33 11 (10/29/22 8:30 AM) 97.77 12 (10/28/22 2:37 AM) BMI ZScore 1.94 13 (10/30/22 9:15 AM) 1.68 14 (10/29/22 8:30 AM) 2.01 15 (10/28/22 2:37 AM) Weight ZScore 1.92 16 (10/30/22 9:15 AM) 1.58 17 (10/29/22 8:30 AM) 2.02 18 (10/28/22 2:37 AM) 1Result Comment: ^~:!Percentile Source -CDC/WHO 2Result Comment: ^~:!Percentile Source -CDC/WHO 3Result Comment: ^~:!Percentile Source -CDC/WHO 4Result Comment: ^~:!ZScore Source -CDC/WHO 5Result Comment: ^~:!ZScore Source -CDC/WHO 6Result Comment: ^~:!ZScore Source -CDC/WHO 7Result Comment: ^~:!Percentile Source -CDC/WHO 8Result Comment: ^~:!Percentile Source -CDC/WHO 9Result Comment: ^~:!Percentile Source -CDC/WHO 10Result Comment: ^~:!Percentile Source -CDC/WHO 11Result Comment: ^~:!Percentile Source -CDC/WHO 12Result Comment: ^~:!Percentile Source -CDC/WHO 13Result Comment: ^~:!ZScore Source -CDC/WHO 14Result Comment: ^~:!ZScore Source -CDC/WHO 15Result Comment: ^~:!ZScore Source -CDC/WHO 16Result Comment: ^~:!ZScore Source -CDC/WHO 17Result Comment: ^~:!ZScore Source -CDC/WHO 18Result Comment: ^~:!ZScore Source -CDC/WHO Social History Social History Type Response Smoking Status Never (less than 100 in lifetime); Tobacco user in household: No entered on: 03/04/21 Sex History and physical note * Cornelia Fairbanks DO: MODIFY, PERFORM Event Display: History and Physical Hospital Authored Date: Patient: ??SCOTTY RIVERA ? Age:??17 Years?Sex:??Female?:??2005?? OB Reason for Admission OB Reason for Admission Reason for admission: Labor LMP/EGA/ANISH Gestational Age (EGA) and ANISH? * Note: EGA calculated as of 10/28/2022 ?? ANISH:??11/05/2022?EGA*:??38 weeks 6 days ? History?(0,0,0,0)?Method:??Last Menstrual Period??(01/29/2022) History of Present Illness Pt is a 17yo G1 @38w6d presenting??with contractions. She admits to ctx every 2- 3min??lasting [id number]. She denies to LOF, VB. + movement. Denies fever/chills, MORALES, dizziness, changes in vision, CP, SOB, RUQ pain,??pain with urination, UE/LE swelling, calf tenderness. Pt would eventually likean epidural. Overall, doing well with no complaints. Review of Systems All systems reviewed and negative except as noted above in HPI. Physical Exam Vitals & Measurements T:??97.9?F ?? HR:??96(Monitored)?? ND:??103?? RR:??18?? BP:??116/74?? SpO2:??99%?? Constitutional: Pleasant, alert, cooperative, no acute distress. Respiratory:??Equal chest rise bilaterally, no labored breathing. Cardiovascular: Regular rate and rhythm.?? Abdomen/GI: Gravid, firm, non-tender Gynecologic:?External Genitalia: normal exam, without lesions Extremities: No edema present bilaterally, no calf erythema Skin: No rash or jaundice. Neurological/Psychiatric: Appearance appropriate, mood and affect stable. ?? OB Exam @2330 Dilation: 3 Effacement: 80% Station: -2 ?? OB Exam @0130 Dilation: 4 Effacement: 100% Station: -2 ?? Cephalic presentation confirmed by:??Ultrasound EFW: 3600g Membrane Status:??Intact OB Assessment Baby A Cervical Estimated Weight:3600 gm Membrane Status:Bulging Cervical Cervical Dilatation4 cm Cervical [id number]% Station-2 Assessment/Plan Assessment:??Pt is a 17yo G1 @38w6d presenting with early labor. GBS positive. ?? Expectant management. Cat I tracing. PCN for GBS prophylaxis. ?? Labor without complication (O80):? - Admit to L&D - CBC, Hold, IV access - CEFM - PPH risk: low - Regular diet - Pain management: Epidural eventually - Reassess patient in 2 hours or sooner as needed ?? Marginal insertion of umbilical cord affecting management of mother (O43.199):? - Noted on anatomy scan - No growth follow up ?? Anemia (D64.9):? - Ferrous sulfate; compliant - CBC: 10.1 - CBC on admission pending ?? Chlamydia (A74.9):? GC/CT/trich positive for chlamydia on 07/09 - treated GC/CT test of cure collected 08/28, positive for chlamydia 1g Azithro sent 08/29, 7 days of doxy sent to partner - Repeat DAVIDSON on admission (pending) ?? GERD (gastroesophageal reflux disease) (K21.9):? TUMS pren with good effect ?? History of appendectomy (Z90.49):? in 2003 - mini laparotomy scar noted ?? Intrauterine in teenager (Z34.80):? Lives with FOB Has family support Endorses safe relationship ?? Late care (O09.30):? Lvl 2 U/S unremarkable Pt. states she recently moved from [place] to [place] and had transportation issues. No concerns now. ?? Marijuana smoker (F12.90):? Quit when she found out she was urine tox collected 08/28: negative ?? Maternal varicella, non-immune (O09.899):? PP vaccine with PCP ?? Plan discussed with Dr. Wolfe, attending physician. OB History History?(0,0,0,0)?No previous pregnancies history have been recorded Labs Labs Labs & Tests ABO: O (05/29/22) Antibody Screen: Negative (05/29/22) Chlamydia Trachomatis Amplified Probe: POSITIVE Abnormal (08/28/22) Glucose 50 Gm, +60 Minutes: 78 mg/dL (08/28/22) Hct:??31.5 %??Low (10/08/22) Hemoglobinopathy Interpretation: Normal hemoglobins. (05/29/22) Hepatitis B Surface Antigen: NEGATIVE (05/29/22) Hepatitis C Ab: NEGATIVE (05/29/22) Hgb:??10 Gm/dL??Low (10/08/22) HIV 4th Generation Ab-Ag Result: NEGATIVE (05/29/22) RH Test Only: Positive (05/29/22) RPR Titer Result: NOT INDICATED (08/28/22) Rubella IgG Ab: POSITIVE (05/29/22) Syphilis Screen by ALEX: NEGATIVE (08/28/22) Urine Culture: Urine Culture (05/29/22) Varicella IgG Ab: NEGATIVE (05/29/22) Problem List Active Active Problem List Anemia: (Medical) GERD (gastroesophageal reflux disease): (Medical) History of appendectomy: (Medical) Intrauterine in teenager: (Medical) Late care: (Medical) Marginal insertion of umbilical cord affecting management of mother: (Medical) Marijuana smoker: (Medical) Maternal varicella, non-immune: (Medical) : (Medical) : (Obstetric) (01/26/22) : (Medical) Procedure/Surgical History Appendectomy: 03 Home Medications Calcium Carbonate: 500 mg = 1 tablet, Chew, 2 times a day Ferrous Sulfate: 325 mg = 1 tablet, By Mouth, 2 times a day Miscellaneous Rx (Expedited partner treatment: Azithromycin 1gm PO once): See Instructions, Expedited partner treatment Multivitamin, : 1 mg = 1 tablet, By Mouth, Daily Allergies NKA [...] History No positive family history reported. Plan OB Plan Feeding Plan: Breast milk (10/27/22) Labor Coping Mechanisms: Epidural (10/27/22) Patient Requests: GIRL (10/27/22) * Yaneth STANTON, Archana Cox: PERFORM Event Display: History and Physical Hospital Authored Date: OBGYN ATTENDING NOTE: I saw and evaluated the patient. I reviewed the resident???s note and agree with findings and plan as documented in the resident???s note. ?? Archana Wolfe MD Hospital Progress note * Alba Veloz RN: PERFORM, SIGN, VERIFY Event Display: Progress Note Hospital Authored Date: [id number] Patient: SCOTTY RIVERA Age: 17 years Sex: Female : 2005 Associated Diagnoses: None Author: Alba Veloz RN babyscripts set up for pt.pt verbalizes understanding.preeclampsia warning signs reviewed and pt has [address] on her fridge at home.Discharge instructions completed * Prabha Hall RN: PERFORM, SIGN, VERIFY Event Display: Progress Note Hospital Authored Date: [id number] Patient: SCOTTY RIVERA Age: 17 years Sex: Female : 2005 Associated Diagnoses: None Author: Prabha Hall RN Findings Pt out of bed ad luiz ambulating in room frequently. Taking in food and fluids well without nausea as well as passing flatus and voiding without difficulty. Pt states pain is well controlled on current medication regime. Mild rubera flow with no clots noted. Pt using tucks and ice pack to halima area.Will continue to monitor. Call olivares in reach. * Mariella Mckenzie CNM: PERFORM Event Display: Progress Note Hospital Authored Date: Patient: ??SCOTTY RIVERA ? Age:??17 Years?Sex:??Female?:??2005?? Subjective ?Pt is resting in room. Lochia< Menses. , baby having a more challenging time on the right breast, favors the left.. Ambulating. Tolerating PO. Urinated. Passed flatus. Pain well controlled with Tylenol and Motrin. Bonding with baby.??Her bottom is very sore , currently not using ice. Lives with mom and sister, very supportive house.?She has all of her baby supplies and FOB involved.?? Continues to??desire a Liletta fro control,??desires this is placed at her 6wk PP appt.?? Denies any hx depression, feels well and much better after finally getting some sleep. ? Review of Systems All other ROS negative other than above Physical Exam Vitals & Measurements T:??99.0?F ?? HR:??100(Monitored)?? ND:??86?? RR:??16?? BP:??105/57?? SpO2:??96%?? HT:??160??cm?? WT:??93??kg?? BMI:??36.33?? Gen: A&Ox3, NAD, laying comfortably in bed Breast: soft, no abnorm Abd: Soft, non-distended, non-tender, no R/G : Fundus firm, at umbilicus distended more on rt side??, non-tender.?? Perineum - stitches intact. No swelling hematoma Ext: No Edema, NT Assessment/Plan Pt is a 17??yo G1 now P1??PPD day #1??after?? of??female ??at term. Pt is meeting appropriate milestones. Pain is well controlled with ibuprofen/Tylenol. Pt desires??IUD at 6wk PP appt??for PPBC ? Continue regular care Ibuprofen/Tylenol for pain control : see PPBC: IUD Plan for discharge: Tomorrow Follow up at [facility] in 6 weeks OB Summary : 1 . Baby A - Date, Time of : 10/28/22 17:46:00 Baby A - Gender: Female Baby A - Complications: None EGA at Documented Date, Time: 38W 6D Weight at Delivery Baby A - Delivery Type: Vaginal Delivery Complications: None OB History History?(0,0,0,0)?No previous pregnancies history have been recorded Active Problem List Active Problem List Anemia: (Medical) GERD (gastroesophageal reflux disease): (Medical) History of appendectomy: (Medical) Intrauterine in teenager: (Medical) Late care: (Medical) Marginal insertion of umbilical cord affecting management of mother: (Medical) Marijuana smoker: (Medical) Maternal varicella, non-immune: (Medical) : (Medical) : (Obstetric) (01/26/22) : (Medical) Home Medications Calcium Carbonate: 500 mg = 1 tablet, Chew, 2 times a day Ferrous Sulfate: 325 mg = 1 tablet, By Mouth, 2 times a day Miscellaneous Rx (Expedited partner treatment: Azithromycin 1gm PO once): See Instructions, Expedited partner treatment Multivitamin, : 1 mg = 1 tablet, By Mouth, Daily Medications Medications (5) Active SCHEDULED: (1) Levonorgestrel 52 mg IUD (Liletta) (Liletta 52mg IUD) ??52 mg 1 each, Intrauterine, student specialist to Procedure CONTINUOUS: (0) PRN: (4) Acetaminophen 325 mg Tablet (Acetaminophen Tablet) ??650 mg, By Mouth, Every 4 hours Calcium Carbonate 500 mg (Calcium 200 mg) Chewable Tablet (Tums 500 mg Tablet) ??1,000 mg 2 tablet,Chew, 3 times a day Docusate Sodium 100 mg Capsule (Docusate Sodium Capsule) ??100 mg 1 capsule, By Mouth, 2 times a day Ibuprofen 800 mg Tablet (Ibuprofen Tablet) ??800 mg, By Mouth, Every 8 hours Note * Lenora Cooper: PERFORM Event Display: Care Team Progress Note Authored Date: [id number] Patient: ??SCOTTY RIVERA ? Age:??17 Years?Sex:??Female?:??2005?? Subjective Cart Round Visit (DAY 2) Current Experience ?Baby: Zayleigh ? Plan: Exclusive breast milk ? Latch: Frequent, shallow at time ? Output: WNL void, last stool 6:53 am 10/29/22 ? Problems: Delay of stool ?? BW: 3548g CW: 3316 g Weight loss: 6.5% ? Assessment/Plan Input/Output Education Day 1: 5-7 mL and 1 void?? Day 2: 10-15 mL and 2 voids/2-3 stool Day 3: 10-20 mL and 3 voids/3-4 stool Day 4: 10-25 mL and 4 voids/3-4 stool Day 5: 15-30 mL and 5 voids/3-4 stool Day 6: 15-30 mL and 6 voids/3-4 stool ?? discussed early pumping if delay of stool continues to increase output. discussed weight loss and further outpatient consults if latch continues to be uncomfortable or pole cutter is concerned with weight loss. ?? Assisted mother with infant latch demo. Baby was??recently fed and not interested in feeding. Laid back position educated/demonstrated to show easy transition from the breast crawl. Football and cross cradle??position educated/demonstrated to show how the positions mimic one another. Baby's mouth was closed and did not suck. Breast compressions taught to increase flow. OB Summary : 1 . Baby A - Weight: 3.548 kg Baby A - Date, Time of : 10/28/22 17:46:00 Baby A - Gender: Female Baby A - Complications: None EGA at Documented Date, Time: 38W 6D Weight at Delivery Baby A - Delivery Type: Vaginal Delivery Complications: None OB History History?(0,0,0,0)?No previous pregnancies history have been recorded Active Problem List Active Problem List Anemia: (Medical) GERD (gastroesophageal reflux disease): (Medical) History of appendectomy: (Medical) Intrauterine in teenager: (Medical) Late care: (Medical) Marginal insertion of umbilical cord affecting management of mother: (Medical) Marijuana smoker: (Medical) Maternal varicella, non-immune: (Medical) : (Medical) : (Obstetric) (01/26/22) : (Medical) Home Medications Acetaminophen: See Instructions, PRN (as needed for pain), 2 capsule (650 mg) taken By Mouth Every 4 hoursnot to exceed 4000 mg/day Calcium Carbonate: 500 mg = 1 tablet, Chew, 2 times a day Docusate: 100 mg = 1 capsule, By Mouth, 2 times a day, PRN (for constipation) Ibuprofen: See Instructions, PRN (as needed for pain), 1 tablet taken By Mouth Every 6 hoursnot to exceed 3200 mg/day Multivitamin, : 1 mg = 1 tablet, By Mouth, Daily Medications Medications (6) Active SCHEDULED: (2) Levonorgestrel 52 mg IUD (Liletta) (Liletta 52mg IUD) ??52 mg 1 each, Intrauterine, student specialist to Procedure Multivitamin Tablet ( Multivitamin Tablet) ??1 tablet, By Mouth, Daily CONTINUOUS: (0) PRN: (4) Acetaminophen 325 mg Tablet (Acetaminophen Tablet) ??650 mg, By Mouth, Every 4 hours Calcium Carbonate 500 mg (Calcium 200 mg) Chewable Tablet (Tums 500 mg Tablet) ??1,000 mg 2 tablet,Chew, 3 times a day Docusate Sodium 100 mg Capsule (Docusate Sodium Capsule) ??100 mg 1 capsule, By Mouth, 2 times a day Ibuprofen 800 mg Tablet (Ibuprofen Tablet) ??800 mg, By Mouth, Every 8 hours * Alba Veloz RN: PERFORM Event Display: Discharge/Transfer Note Hospital Authored Date: [id number] Nursing Discharge Note Entered On: 10/30/2022 14:43 EST Performed On: 10/30/2022 14:41 EST by Alba Veloz RN Nursing Discharge Note 2 Discharge Time : 10/30/2022 14:40 EST Discharge Level of Care at Discharge : Home/Penitentiary/Foster Care Patient Left Unit Via : Ambulatory Patient Accompanied Off Unit with : Significant other, Other: DC Instructions Provided & Signed by Pt : Yes Patient Understands D/C Instructions : Yes Verbalized Understanding of D/C Plan By : Patient Patient Instructions Discharge Signed : Yes Discharge Comments : baby id bands removed per [facility] [place] policy.discharged home with infant in carseat with fob and her mother Did Pt have Specialty Bed or Wound Vac : No Alba Veloz RN - 10/30/2022 14:41 EST * Sharon López MD: PERFORM Event Display: Discharge/Transfer Note Hospital Authored Date: [id number] Patient: ??SCOTTY RIVERA ? Age:??17 Years?Sex:??Female?:??2005?? Admit Date Admission Date: 10/28/2022 Discharge Date 10/30/2022 OB Reason for Admission OB Reason for Admission Reason for admission: Labor [facility] Hospital Course Patient is a 17yo G1 @38w6d admitted in labor. She ruled in for gestational hypertension during herlabor course, HELLP labs WNL, tpcr 0.17. She proceeded to have uncomplicated on 10/28, 1st degree laceration repaired. Her chlamydia test of cure confirmed successful treatment. Normotensive sincedelivery. Remaining hospital course was uncomplicated. On day of discharge, patient meeting appropriate milestones and appropriate for discharge to home. ?? Patient is feeling well with no acute concerns. States her pain is well controlled with PO pain medications. Her lochia is??like a normal period. She is ambulating, voiding spontaneously, and tolerating regular diet. Denies fever, chills, chest pain, shortness of breath,??persistent headache, vision changes, RUQ pain, calf tenderness, nausea, vomiting, or other??acute concerns.??Mood is??appropriate and she is bonding well with her baby. Patient??reports that she has a??good support system at home. Objective/Physical Exam on Day of Discharge Vitals & Measurements T:??97.4?F ?? HR:??100(Monitored)?? ND:??98?? RR:??16?? BP:??103/55?? SpO2:??98%?? HT:??160??cm?? WT:??80.7??kg?? BMI:??31.52?? Constitutional:??No acute distress, resting comfortably. Respiratory:??Normal work of breathing. Breathing comfortably on room air. Cardiovascular:??No signs of fluid overload. Abdomen/GI:??Soft, non-distended, no guarding, no rebound tenderness.??Fundus firm below umbilicus with mild tenderness. Gynecologic:??Minimal lochia. No swelling or hematoma. Extremities:??No calf tenderness or edema. Skin:??No rash or jaundice. Neurological/Psychiatric:??Mood and affect congruent and stable. Assessment/Plan/Discharge Diagnosis Labor without complication (O80):? - Expected discharge to home PPD2 - Continue routine care - Diet: Regular - Pain control: Ibuprofen & Tylenol - Encourage ambulation - Feeding plan: - sex: female - PPBC: Liletta IUD at 6w??PPV - Follow-up: BP check in 3 days plus 4-6 wk visit ?? Gestational hypertension (O13.9):? - BPs q4, Is/Os q4 - HELLP labs WNL, TPCR pending (x) DC home on Babyscripts w/ 3d BP check ?? Chlamydia (A74.9):? GC/CT/trich positive for chlamydia on 07/09 - treated GC/CT test of cure collected 08/28, positive for chlamydia 1g Azithro sent 08/29, 7 days of doxy sent to partner - Repeat DAVIDSON on admission negative ?? Intrauterine in teenager (Z34.80):? Lives with FOB Has family support Endorses safe relationship ?? Maternal varicella, non-immune (O09.899):? PP vaccine with PCP ?? Care: monitoring for hypertension Delivery Summary Delivery Summary Maternal Information ??Labor Information ?Baby A ?Labor Onset Methods: ??Spontaneous ??Delivery Information ?Gestational Age at Delivery: ??38W 6D ?Anesthesia OB: ??Epidural ??10/28/22 20:58:14, Epidural ??10/28/22 12:27:43 ?Obstetrical Laceration: ??Perineal laceration, Labial laceration ?Perineal Laceration: ??Right, 1st degree ?Perineal Laceration Repair: ??Vicryl suture ?Labial Laceration: ??Left ?Anesthesia for Repair: ??Epidural ?Delivery Complications: ??None ?Blood Loss(ml): ??350 mL ? Baby A ??Delivery Information ?Delivery Type: ??Vaginal ?Date, Time of : ??10/28/22 17:46:00 ? Position: ??Supine ?Foot of bed removed: ??No ?Delayed Cord Clamping: ??Yes ?Placenta Delivery Date/Time: ??10/28/22 17:52:00 ?Placenta Delivery Method: ??Spontaneous ?Placenta Appearance: ??Marginal cord insertion ?Placenta to Pathology: ??No ??Care Team ?Delivery Physician: ??Rene STANTON, Sharon ?Delivery CNM: ??Magaly MARTINM, Mariella Aaron ?tank calibrator #1: ??Gerson OCONNELL, Maura ?tank calibrator #2: ??Wayne OCONNELL, Lenora ?Manager Estate: ??Graciela Blankenship DO ?Anesthesiology Attending: ??Americo STANTON, Ninfa ??Labor Information ?ROM Date, Time: ??10/28/22 14:15:00 ?ROM to Delivery Total Time: ??211 min ? monitoring: ??External monitor ?? Information ? Outcome: ??Live ? Position: ??Occiput posterior ? Weight: ??3.548 kg ? Score 1 minute: ??8 ? Score 5 minute: ??9 ? Score 10 minute: ??9 ?Transferred To: ?? Care area with Family ?Umbilical Cord Description: ??3 vessel cord ? Complications: ??None ?Gender: ??Female ? Procedures Performed Epidural Vaginal delivery ?? Discharge Medications ???Acetaminophen (Tylenol 325 mg oral capsule)???Calcium Carbonate (Tums 500 mg oral tablet, chewable)???Docusate (Colace sodium 100 mg oral capsule)???Ibuprofen (ibuprofen 600 mg oral tablet)???Multivitamin, ( Multivitamins with Folic Acid 1 mg oral tablet) Stop taking these medications ???Ferrous Sulfate (ferrous sulfate 325 mg oral tablet)???Miscellaneous Rx (Expedited partner treatment: Azithromycin 1gm PO once) Immunizations during Hospitalization Vaccine Date Statusinfluenza virus vaccine, inactivated 07/09/2022 Given Contraception IUD at visit -??Liletta ? Feeding Method No Results Follow-Up Appointments Added Follow Up ?Time Frame ?Comments [facility] [phone] Weeks?Our office will reach out to you with appointment date and time. [facility] [phone]?3 Days?Our office will reach out to schedule an in-person??blood pressure check 3 days after you go home Patient Instructions Discharge:??Home ?? Please call the office with any concerns including:?? Heavy vaginal bleeding?? Fever of 100.4 or greater Foul-smelling vaginal discharge Difficulty or burning with urination Nausea and vomiting with inability to tolerate food Pain not controlled by the medications listed below Shortness of breath or chest pain. Swelling of the extremities. ?? General Instructions: - Avoid lifting anything 15 lbs or greater until cleared by doctor. - Stairs are OK but avoid multiple trips/ skipping steps and go slowly. - Walk as often as you are able. - Do not put anything in the vagina. No intercourse, tampons, or douching - For pain, you can use uilf-lbb-jleauno medicines:??Tylenol (acetaminophen, up to 1000mg every 6 hours) and ibuprofen (up to 600mg every 6 hours) - Continue using stool softeners as needed??(examples: colace/docusate, senna, miralax) - Shower as usual. Avoid tubs / soaking / pools. ?? Thank you for allowing us to be part of your care team. * Linda Prince CNM: PERFORM Event Display: Discharge/Transfer Note Hospital Authored Date: This note was completed with the aid of a resident, I personally performed all components of the visit including the history of present illness, examination and medical decision making. The note has been verified for accuracy and re- documented as needed.?? * Alba Veloz RN: PERFORM Event Display: Patient Education/Instruction Authored Date: Inpatient Adult Discharge Instructions [address] [address] Name: SCOTTY RIVERA : 2005 Visit: 10/28/2022 01:46:00 Current Date: 10/30/2022 11:24 Account: [id number] Inpatient Adult Discharge Instructions We would like [...] and their families. Surveys are administered by [employer] ?? If further treatment with your primary care physician or another doctor is recommended, it is important for you to keep the appointment. Call your primary care physician or return to the Emergency Department immediately if your condition worsens, fails to improve, or new symptoms develop. If you need to find a doctor, you can call [facility] for a referral at [phone] or toll free at [phone] or log in to [email or web address].. ?? You can view and manage your care through the patient portal or by using a health care eugenia of your choosing. [facility] is a website that allows you to securely view your medical information including your hospital discharge summary, office visit summaries, medications and follow-up visits. You can also request appointments, renew medications, and request access to your medical information using a health care eugenia of your choosing, or just ask a question. You can enroll at [email or web address] or register during your next office visit. You have been discharged from [facility], Patient Care Unit: [facility]. If you have any questions regarding these instructions after you leave, please call us and we will be happy to assist you. [facility] Your Care Team Attending Physician Yaneth STANTON, Archana Cox Discharging Providers Rene STANTON, Sharon Reason for Admission Labor Your Diagnosis Labor without complication Marginal insertion of umbilical cord affecting management of mother Gestational hypertension Anemia Chlamydia Intrauterine in teenager Maternal varicella, non-immune Other underimmunization status Tests Performed Below is a partial list of the tests performed during your hospitalization. You may have had other tests and procedures not included in this list. Please discuss all test results with your provider. ALT AST CBC Chlamydia/N. Gonorrhoeae TMA (NAAT) Creatinine Urine Protein/Creatinine Ratio Primary Care Provider Heena Lopez MD Advance Directive Health Care Proxy on File Yes - Health Care Proxy Patient has a Designated Caregiver: No Discharge Vitals Temperature: 97.8 DegF Height: 160 cm Pulse Rate: 78 bpm Weight: 80.7 kg Respiratory Rate: 18 br/min Body Mass Index:??31.52 kg/m2??Critical Systolic Blood Pressure: 112 mm Hg Body surface area: 1.89 Diastolic Blood Pressure: 68 mm Hg ?? Oxygen Saturation: 98 % ?? Studies Pending All tests and labs ordered during this hospital stay have been completed unless listed below. Please discuss all pending results with your provider listed above in these instructions. ?? COVID-19 (2019 Novel Coronavirus) PCR Hold Lavender Tube (BB) What to do next Instructions From Your Doctor Discharge:??Home ?? Please call the office with any concerns including:?? Heavy vaginal bleeding?? Fever of 100.4 or greater Foul-smelling vaginal discharge Difficulty or burning with urination Nausea and vomiting with inability to tolerate food Pain not controlled by the medications listed below Shortness of breath or chest pain. Swelling of the extremities. ?? General Instructions: - Avoid lifting anything 15 lbs or greater until cleared by doctor. - Stairs are OK but avoid multiple trips/ skipping steps and go slowly. - Walk as often as you are able. - Do not put anything in the vagina. No intercourse, tampons, or douching - For pain, you can use udms-viu-nxbqewf medicines:??Tylenol (acetaminophen, up to 1000mg every 6 hours) and ibuprofen (up to 600mg every 6 hours) - Continue using stool softeners as needed??(examples: colace/docusate, senna, miralax) - Shower as usual. Avoid tubs / soaking / pools. ?? Thank you for allowing us to be part of your care team. Discharge Orders Instructions from your Care Team Discharge Care Instructions for the New Mom?? Please take a few moments to read through these helpful instructions before you leave the hospital.??Your nurse will be glad to answer any questions you may have. ??You can also find this and more information throughout the purple??Becoming a Family??booklet,??[facility]???s New Beginnings Guide??and the?? Consultation Services Guide??given to you after the of your baby. ??You may also phone our nurses stations if you have further questions. ??[facility]: ??First Floor ([phone]), Second Floor ([phone]). ?? Please call your provider if you have any questions or concerns ??before your next appointment. For ongoing support??please?Like?us on our Facebook page?[facility]???s New Beginnings?and sign up for our email newsletter at??[email or web address]. ??News and information will be sent to you??until your baby???s third birthday. Instructions for the New Mother Activity:?? For the next 2 weeks at home?no heavy lifting, avoid unnecessary stair climbing, and no driving (especially if you are taking medicine that may make you sleepy or feel that you are sleep deprived). ?? For the next 4-6 weeks - no tampons, no douches, no sexual intercourse. Use your halima bottle to rinse your perineum until your vaginal flow stops. ??If you have stitches in your bottom, they generally dissolve within 7-10 days. ??Apply Tucks/witch zander pads until your soreness subsides. ??Use your bathroom at home every 3 to 4 hours, rinse, and change your pads. Warm showers feel great on achy muscles, sore backs and sore bottoms. Exercise: Walking is the best form of exercise. ??Wait until your follow up appointment with your provider in4-6 weeks before engaging in more strenuous activity. Diet: Drink plenty of fluids to avoid constipation and to help support your recovery. Eat plenty of iron rich foods such as red meat, iron fortified cereals like Total and Cream of Wheat, raisins, prunes, greens and spinach. ??These will help to build your blood count back up as all women lose some blood after delivery. ??Also add foods rich in Vitamin C such as strawberries, oranges, papayas, kale and olivares peppers. Continue to take your vitamins if you are . ??If you are not follow the instructions of your provider. ??If you were prescribed iron supplements such as ferrous sulfate, it is important to continue these until your doctor or stock preparation operator tells you to stop. Breast Care for Nursing Mothers: Wear a comfortable fitting, supportive nursing bra. ??An underwire bra is not recommended. Express drops of breast milk and rub over your nipples and areola (brown area) before and after each feeding to protect and heal sensitive skin and then air dry your nipples. ??If you are experiencing any soreness, you may purchase nipple cream such as TenderCare or Lansinoh. ??Use it in the following manner: ??finish your feeding or pumping session, self-express colostrum onto your nipple and air dry, apply the nipple cream to the nipple and areola. ??Use only small amounts for best results. If you are having difficulty getting the baby to latch onto the breast due to swelling of the areola, try applying pressure with your fingers for a couple of minutes above and below your nipple and walk your fingers outward softening the area and pushing the swelling away. ??This technique is knownas reverse pressure softening. ??For demonstrations of this and other techniques such as the [place] Hand Expression technique, please refer to the resources section of the Consultation Services Guide that you received from services.?? When your milk first comes in, usually within 3 to 5 days after delivery, you may experience engorgement. ??Your breasts may become swollen and very tender. ??Cold compresses work great to help with discomfort and reduce swelling. It will get better in a couple of days. ??Continue to nurse your baby frequently. ?? Call [facility]???s Consultation Service at [phone], press 1 to schedule an outpatient appointment or press 3??and a cancer program consultant will return your call that day or the next if you call after 3pm. ? Control: Your doctor or stock preparation operator will discuss control methods with you when you are discharged from thefriends hospital or at your checkup. ??Be sure to let your provider know if you are . You had a Paragard IUD placed on . ??This control method is effective for 10 years. You had a Liletta placed on . ??This control method is effective for up to 5 years. You had a Nexplanon placed on . ??This control method is effective for up to 3 years. You received a Depo Provera injection on . ??This control method is effective as longas you repeat it every 3 months.?Schedule your next dose before . You have a prescription for control pills . ??It is important to take a pill everyday at around the same time of day for effective control protection. ?? Pain Management: Cramping after is common and increases in strength with each baby you have. ??If you experience painful cramps, and have no allergies to acetaminophen (Tylenol) or ibuprofen (Motrin), you may continue to take these medications as you did in the hospital. ??Ibuprofen is also helpful with back aches following epidurals, perineal pain following a vaginal delivery, and moderate incisional pain after a section or a tubal ligation. ?? If you experience gas distention, especially after surgery, you may take an over the counter medication called simethicone. ??Take these chewable tablets 4 times a day as needed and directed on the package. ??Keep moving. ??Walking or rocking in a chair, will help to move the gas along. ??Donovan tea made with heated donovan ashok (instead of water) and a tea bag, stirred to dissolve carbonation (bubbles) is a helpful drink to soothe a gassy stomach. Warning Signs of a Problem to Notify Your Doctor or Latin Professor of: Heavy vaginal bleeding?which is??soaking a pad every hour??with bright red blood. Passing blood clots the size of an egg or larger. An incision that is not healing. A temperature greater than or equal to 100.4 especially if accompanied by any of the following symptoms?painful, frequent urination; extreme back or flank pain; lower belly pain with a foul smell to your vaginal flow; a red hard hot area on your breast. ?? Severe headache that does not go away after taking acetaminophen or ibuprofen. ?? A headache that changes your vision, including seeing spots or blurring. Right sided upper abdominal pain along the rib cage area. Pain in your legs that is warm and tender to the touch. depression signs may include?loss of interest in your baby, weepiness, difficulty focusing, weight loss with no appetite, exhaustion, feeling overwhelmed or anxious, feelings??of despair, or thoughts of harming yourself or your baby. ??These symptoms are important and should be discussed with your doctor or stock preparation operator. depression may develop over a period of time and needs prompt medical attention. ??Do not suffer in silence. ??In both the??Becoming a Family??booklet and the??[facility]??New Beginnings Guide??there is a screening tool used to identify women at risk, called the [place] Scale which you have taken in the office prior to delivery and again during your ho spital stay. ??Three to four weeks after your delivery, and before your check with your provider, take this test and share your results with your provider. ??Be sure to mention any score of 10 or more. ?? Many women, and even some partners, may experience the?baby blues?? . ??This is a state of feeling overwhelmed and weepy. ??Discomfort from childbirth, hormonal changes, exhaustion, changes to your body and lifestyle are a few of the things that contribute to the highs and lows new parents go through. ??Don???t be afraid to ask your partner or family and friends for some help at home so you can get some rest and a few minutes to yourself. ??The blues will quickly pass. Personal Safety: Every person has the right to feel safe at home and live free from physical or emotional harm. ??Ifyou have suffered mental or physical abuse at home, you are not alone. ??There is help. ??Please call HOT[facility] or the [place] [facility] at [phone]. You Need to Schedule the Following Appointments Follow Up with??[facility] [phone] When??In 6 weeks Why: Our office will reach out to you with appointment date and time. Where: Follow Up with??[facility] [phone] When??In 3 days Why: Our office will reach out to schedule an in-person??blood pressure check 3 days after you go home Where: Discharge Medications SCOTTY RIVERA :2005 Visit Date:10/28/2022 Medications: Please continue your medications until treatment is completed or stopped by your provider. Medications not listed below should be discontinued. Discuss any questions related to medications with your provider. What How Much When Instructions Next Dose New Acetaminophen (Tylenol 325 mg oral capsule) See instructions 2 capsule (650 mg) taken By Mouth Every 4 hours not to exceed 4000 mg/ day ?? Pickup at [facility]/pharmacy #207010/30/2022 12noon New Docusate (Colace sodium 100 mg oral capsule) 1 capsule Oral Twice a day as needed for for constipation Pickup at [facility]/pharmacy #[id number]/30/2022 8pm New Ibuprofen (ibuprofen 600 mg oral tablet) See instructions 1 tablet taken By Mouth Every 6 hours not to exceed 3200 mg/ day ?? Pickup at [facility]/pharmacy #[id number]/30/2022 4pm Unchanged Calcium Carbonate (Tums 500 mg oral tablet, chewable) 1 tab(s) Chew Twice a day as needed Unchanged Multivitamin, ( Multivitamins with Folic Acid 1 mg oral tablet) 1 tab(s) Oral Daily 10/31/22 9am Pharmacy Information [facility]/pharmacy #[id number]: [address], [place] [id number] [phone] ?? What How Much When Comments Stop Taking Ferrous Sulfate (ferrous sulfate 325 mg oral tablet) 1 tab(s) Oral Twice a day Stop Taking Miscellaneous Rx (Expedited partner treatment: Azithromycin 1gm PO once) See instructions Expedited partner treatment ?? Test Results Below is a partial list of the most recent Laboratory test results done prior to this discharge. You may have had other tests and procedures not included in this list. Please discuss all test resultswith your provider. ALT (10/28/2022) ???ALT (SGPT) - 27 units/L AST (10/28/2022) ???AST (SGOT) - 19 units/L CBC (10/28/2022) ???WBC - 15.0 k/mm3???RBC - 3.34 m/mm3???Hgb - 9.6 Gm/dL???Hct - 29.4 %???MCV - 88.0 femtoliters???MCH - 28.7 pg???MCHC - 32.7 g/dL???Platelet Count - 241 k/mm3???RDW-SD - 43.4 femtoliters???MPV - 12.0 femtoliters???Nucleated RBC (Automated) - 0.0 #/100 WBC'S???Abs. NRBC - 0.0 k/mm3 Chlamydia/N. Gonorrhoeae TMA (NAAT) (10/28/2022) ???Chlamydia Trachomatis Amplified Probe - NEGATIVE???N. Gonorrhoeae Amplified Probe - NEGATIVE???Chlamydia / GC AMP Probe Specimen - URINE Creatinine (10/28/2022) ???Creatinine-Blood - 0.7 mg/dL???Estimated GFR Creatinine - 128 ML/MIN/1.73 M2 Urine Protein/Creatinine Ratio (10/28/2022) ???Protein, Total Urine Random - 12 mg/dL???TP/Cr Ratio - 0.17???Creatinine, Urine - 70.2 mg/dL Allergies (NKA means No Known Allergies) NKA Problems Active Problems??(11) Anemia?? GERD (gastroesophageal reflux disease)?? History of appendectomy?? Intrauterine in teenager?? Late care?? Marginal insertion of umbilical cord affecting management of mother?? Marijuana smoker?? Maternal varicella, non-immune? Education Materials Below is the list of Educational Leaflet Providered with your Discharge Instructions. Valuables and Belongings I fully understand and agree that [facility] accepts no responsibility for all my personal [...] encouraged to send valuables and belongings home. ?? Review of Valuable and Belonging List: With patient Date for Pt to Sign Valuables/Belongings: 10/29/22 06:07:00 ?? Other Discharge Information ? Pulmonary Rehab Status?? Pulmonary Rehab Discharge Status?? Respiratory Rate: 18 br/min ? Common Emergency Awareness Tips IS [...] are strongly encouraged to quit. Please call [facility] [employer] [facility] at [phone] or [phone] ([phone]) or log in to [email or web address] for referrals to smoking cessation programs. ?? The National Suicide Prevention Hotline is available 31/03 if you or someone you know needs to find a reason to keep living. By calling 5-527-892-[facility] (3171) you'll be connected to a skilled, trained counselor at a crisis center in your area. INPATIENT DISCHARGE INSTRUCTIONS SIGNATURE PAGE SCOTTY RIVERA Location:[facility] Registration Date and Time:10/28/2022 01:46 [facility] Primary Care Physician: Heena Lopez MD, I SCOTTY RIVERA, have received the above patient education materials/instructions and have verbalized understanding. If ambulance or transport services are being used I further acknowledge beinggiven a choice of service. ?? If you need to contact me, please call me at this number: . Patient/Heavy Equipment Mechanic Name: Patient/Heavy Equipment Mechanic Signature: Relationship to Patient: Witness Name/Signature: Date: * Alba Veloz RN: PERFORM Event Display: Patient Education Leaflets Authored Date: [id number] Understanding Preeclampsia ?? [address]507 Understanding Preeclampsia Preeclampsia is a condition that can happen in . It includes high blood pressure (hypertension), swelling, and signs of organ problems.??It can show up around week 20 of . It often goes away by 12 weeks after you give . It can lead to serious health risks for you and your baby. During your , your healthcare provider will watch your blood pressure. Your blood pressure will be monitored regularly throughout your to help check for preeclampsia. Dangers of preeclampsia If not treated, preeclampsia can cause problems for you and your baby. The placenta is the organ that nourishes your baby. It may tear away from the wall of the uterus. This can put the baby at risk for health problems ( distress). It can put the baby at risk for . Preeclampsia can also cause these health problems in you: ??? Kidney failure or other organ damage ??? Seizures ???Stroke ?? Who???s at risk for preeclampsia? No one knows what causes preeclampsia. It can happen in any person. But there are things that increase your risk. You may need to take a daily low dose of aspirin if you are at risk for preeclampsia. You???re at higher risk for preeclampsia if you have any of these: ??? Diabetes ??? High blood pressure ??? Obesity ??? Kidney disease ??? Autoimmune disease such as lupus ??? A family history of preeclampsia You???re at higher risk if any of these apply to you: ??? This is your first ??? You are having twins or more ??? You???re under age 18 or overage 40 ??? You used in vitro fertilization ??? You are Black And you???re at higher risk if you had any of these in a past : ??? Preeclampsia ??? Intrauterine growth restriction (IUGR) ? Placental abruption ? Symptoms A common symptom of preeclampsia is high blood pressure. Other symptoms may include: ??? Fast weight gain ??? Protein in your urine ??? Headache ??? Belly (abdominal) pain on your right side ??? Vision problems such as flashes or spots ??? Swelling (edema) in your face or hands (this often happens near the end of a normal ) ?? Tests you may have Your healthcare provider will want to check your blood pressure. This will need to be done often inyour . If your blood pressure is high, you may have??these tests: ??? Urine tests to look for protein ??? Blood tests to confirm preeclampsia ??? monitoring to make sure that your babyis healthy ?? Treating preeclampsia Preeclampsia almost always ends soon after you give . Until then, your healthcare provider canhelp you manage it. If your symptoms are mild, you may to: ? Limit your activity ??? Rest in bed ??? Not do heavy lifting ?? If your symptoms are severe, you will stay in the hospital. Treatment here may include: ??? Limits to your activity. This is to help control your blood pressure. You should not lift anything heavy. You will need to spend 8 hours a day lying down with your feet up. ??? Magnesium IV (intravenous) drip. This is done during labor. It's to prevent seizures ??? Induced labor or section. ?? When to call your healthcare provider Call your healthcare provider if your symptoms start quickly or are severe. This includes swelling,weight gain, or other symptoms.??Some cases of preeclampsia are more severe than others. Your symptoms also may change or get worse as you get closer to your due date. ?? Once you give In most cases, preeclampsia goes away on its own soon after you give . This is often by the 12th week after you deliver. Within days after you give , your blood pressure, swelling, and other symptoms??should get better. But for some people, problems from preeclampsia can continue after . ?? preeclampsia Preeclampsia that starts after is rare. There are 2 types: ??? preeclampsia. This may start in the first 48 hours after . ??? Late-onset preeclampsia. This starts more than 48 hours after . Both of these types are rare. But call your healthcare provider right away if you have symptoms of preeclampsia after you give . ?? How daily issues affect your health Many things in your daily life impact your health. This can include transportation, money problems,housing, access to food, and childcare attendant. If you can???t get to medical appointments, you may not receive the care you need. When money is tight, it may be difficult to pay for medicines. And living far from a grocery store can make it hard to buy healthy food. If you have concerns in any of these or other areas, talk with your healthcare team. They may know of local resources to assist you. Or they may have a staff person who can help. ?? Last Reviewed Date: 2021 ?? 5539-6337 [employer]. All rights reserved. This information is not intended as a substitute for professional medical care. Always follow your healthcare professional's instructions. ?? * Meggan OCONNELL, Kassidy: PERFORM Event Display: Care Team Progress Note Authored Date: [id number] Patient: ??SCOTTY RIVERA ? Age:??17 Years?Sex:??Female?:??2005?? Subjective consutl for 17 y.o. , 38w6d, at < 24 hours post VD. Pt has home pump. Desires . Assessment/Plan Feeding sheet filled out appropriately, breast soft, nipples intact, easily expressing colostrum.??Assisted with latching baby in cross chest on R breast. Baby eager to breastfeed, latched breast with wide gape and intermittent tugs for 10 minutes. Reviewed feeding frequency and duration as well as feeding and behavior expectations. ?? Basic education discussed with??motherincluding:? Positioning for optimal feeding Asymmetric latch technique Frequent breast stimulation for initiation and maintenance of milk supply Coming to full milk volume in first 14 days Engorgement prevention and management Hand expression When to use a breast pump Consultation reference guide given to mother with contact information for services and ongoing support as needed.? All questions answered, encouraged to contact [place] for support. will follow up as needed. ?? ANISH Crawford, IBCLC OB Summary : 1 . Baby A - Weight: 3.548 kg Baby A - Date, Time of : 10/28/22 17:46:00 Baby A - Gender: Female Baby A - Complications: None EGA at Documented Date, Time: 38W 6D Weight at Delivery Baby A - Delivery Type: Vaginal Delivery Complications: None OB History History?(0,0,0,0)?No previous pregnancies history have been recorded Active Problem List Active Problem List Anemia: (Medical) GERD (gastroesophageal reflux disease): (Medical) History of appendectomy: (Medical) Intrauterine in teenager: (Medical) Late care: (Medical) Marginal insertion of umbilical cord affecting management of mother: (Medical) Marijuana smoker: (Medical) Maternal varicella, non-immune: (Medical) : (Medical) : (Obstetric) (01/26/22) : (Medical) Home Medications Calcium Carbonate: 500 mg = 1 tablet, Chew, 2 times a day Ferrous Sulfate: 325 mg = 1 tablet, By Mouth, 2 times a day Miscellaneous Rx (Expedited partner treatment: Azithromycin 1gm PO once): See Instructions, Expedited partner treatment Multivitamin, : 1 mg = 1 tablet, By Mouth, Daily Medications Medications (6) Active SCHEDULED: (2) Levonorgestrel 52 mg IUD (Liletta) (Liletta 52mg IUD) ??52 mg 1 each, Intrauterine, student specialist to Procedure Multivitamin Tablet ( Multivitamin Tablet) ??1 tablet, By Mouth, Daily CONTINUOUS: (0) PRN: (4) Acetaminophen 325 mg Tablet (Acetaminophen Tablet) ??650 mg, By Mouth, Every 4 hours Calcium Carbonate 500 mg (Calcium 200 mg) Chewable Tablet (Tums 500 mg Tablet) ??1,000 mg 2 tablet,Chew, 3 times a day Docusate Sodium 100 mg Capsule (Docusate Sodium Capsule) ??100 mg 1 capsule, By Mouth, 2 times a day Ibuprofen 800 mg Tablet (Ibuprofen Tablet) ??800 mg, By Mouth, Every 8 hours Patient Care team information Care Team Personnel Name: Heena Lopez MD Position: [facility] General Pediatrics MD Member Role: PCP Address: Address: [address] [place] [address] Pediatric [place], [place] - Name: Prabha Hall RN Position: [facility] OB RN Member Role: Patient Care Provider Name: Alba Veloz RN Position: [facility] OB RN Member Role: Patient Care Provider Care Team Related Persons Name: BERHANE VENTURA Address: home [address] [place] [address] Name: GREGOR VENTURA Address: home [address] [place], [place] Name: SCOTTY RIVERA GIRL Address: [employer] Address: [address]
--- OUTSIDE RECORDS SUMMARY | 2024-06-01 00:31 | XMS_ITS | Continuity of Care Document ---
Author Organization [facility] Address [address] [place] [address]- Care Team Providers Care Change Control Specialist Name Role Phone Heena Lopez MD Primary Care Physician Encounter [facility] Date(s): 05/16/22 - 06/15/[address] [address]- Allergies, Adverse Reactions, Alerts No Known Allergies Medications Expedited partner treatment: Azithromycin 1gm PO once Expedited partner treatment: Azithromycin 1gm PO once, See Instructions, # 1 each, Refills 0, Tot. Refills 0, Maintenance, Expedited partner treatment, 03/06/21 13:39:00 EDT, Supply Start Date: 03/06/21 Status: Ordered Problem List Condition Confirmation Course Effective Dates Status Health St atus Informant Confirmed Active Intrauterine in teenager Confirmed Active Maternal varicella, non-immune Confirmed Active Social History Social History Type Response Smoking Status Never (less than 100 in lifetime); Tobacco user in household: No entered on: 03/04/21 Sex Patient Care team information Personnel Name: Heena Lopez MD Address: Address: [address] [place] [address] Pediatric [place], [place] [address]
--- OUTSIDE RECORDS SUMMARY | 2024-06-01 00:32 | XMS_ITS | Continuity of Care Document ---
Author Organization [facility] ter Address [address] [place] [address]- Care Team Providers Care Hazardous Materials Analyst Name Role Phone Jose Armando ALMANZAR, Julieta Vidal Primary Care Physician Encounter [facility] Date(s): 09/22/19 - 09/29/[address] [address]- [facility] Attending Physician: Whitney George NP Allergies, Adverse Reactions, Alerts Substance Reaction Severity Status NKA Active Medications albuterol 0.083% inhalation solution See Instructions, Scheduled / PRN, 0, 0, 07/02/07 0:36:03, as needed for wheezing, Inhalation, Print TEO Number Start Date: 07/02/07 Status: Ordered Orapred sodium phosphate 15 mg/5 ml oral liquid 17.9641, mg, 6, mL, By Mouth, Daily, 25, mL, 0, 0, 07/03/07 13:29:31, Print TEO Number, ADS [id number], Constant Indicator Start Date: 07/03/07 Stop Date: 07/07/07 Status: Ordered
--- OUTSIDE RECORDS SUMMARY | 2024-06-01 00:32 | XMS_ITS | Continuity of Care Document ---
Author Organization [facility] Address [address] [place] [address]- Care Team Providers Care Pulpwood Dealer Name Role Phone Rounds Heena STANTON Primary Care Physician Encounter [facility] Date(s): 08/29/22 - 09/28/[address] [address] Allergies, Adverse Reactions, Alerts No [...] 1 Refills, Maintenance, 09/04/22 16:45:00 EST, Tablet, [facility]/pharmacy #[id number], Partial fill upon patient request if the prescription is for a schedule II opioid drug., 164.5, cm, 08/28/22 15:05:00 EST, Heig... Start Date: 09/04/22 Status: Ordered Multivitamins with Folic Acid 1 mg oral tablet 1 tablet = 1 mg, By Mouth, Daily, # 30 tablet, 3 Refills, Maintenance, 08/28/22 15:16:00 EST, Tablet, [facility]/pharmacy #[id number], Partial fill upon patient request if the prescription is for a schedule II opioid drug., 1 tablet By Mouth Daily, 164.5, cm, 08/09... Start Date: 08/28/22 Status: Ordered Tums 500 mg oral tablet, chewable 500 mg, 1, tablet, Chew, 2 times a day, # 65 tablet, Refills 3, Tot. Refills 3, Maintenance, 09/24/22 15:08:00 EST, Route to Pharmacy Electronically, [facility]/pharmacy #[id number], Partial fill upon patient request [...] Heena Lopez MD Position: [facility] General Pediatrics MD Member Role: PCP Address: Address: [address] [place] [address] [place] [address]- Care Team Related Persons Name: BERHANE VENTURA Address: home [address] [place] [address] Name: GREGOR VENTURA Address: [address] [place] [address]
--- OUTSIDE RECORDS SUMMARY | 2024-06-01 00:32 | XMS_ITS | Continuity of Care Document ---
Author Organization [facility] ter Address [address] [place] [address]- Care Team Providers Care Art Critic Name Role Phone Jacquelyn Deleon DO Primary Care Physician [phone] En[place] [facility] [place] Date(s): 03/04/21 - 03/06/[address] [address] Discharge Disposition: A-D/C Home Attending Physician: Rony Doss Admitting Physician: Jazz STANTON, Merlin Referring Physician: Not on Staff, Referring MD Allergies, Adverse Reactions, Alerts Substance Reaction Severity Status NKA Active Medications doxycycline hyclate 100 mg oral capsule 1 capsule = 100 mg, By Mouth, 2 times a day, for 13 days, # 26 capsule, 0 Refills, Acute 03/19/21 21:00:00 EDT, 03/06/21 21:00:00 EDT, Capsule, [facility], 164.5, cm, 03/06/21 12:52:00 EDT, Height, 72.2, kg, 03/04/21 22:10:00 EDT, Dry We... Start Date: 03/06/21 Stop Date: 03/19/21 Status: Ordered Expedited partner treatment: Azithromycin 1gm PO once Expedited partner treatment: Azithromycin 1gm PO once, See Instructions, # 1 each, Refills 0, Tot. Refills 0, Maintenance, Expedited partner treatment, 03/06/21 13:39:00 EDT, Supply Start Date: 03/06/21 Status: Ordered Vital Signs Most recent to oldest [Reference Range]: 1 2 3 Height 164.5 cm (03/06/21 12:52 PM) 164.5 cm (03/06/21 9:35 AM) 164.5 cm (03/06/21 4:47 AM) Weight 71.6 kg (03/04/21 1:13 PM) Oxygen Saturation [94-100 %] 99 % (03/06/21 12:52 PM) 99 % (03/06/21 9:35 AM) 99 % (03/06/21 4:47 AM) Pulse Rate [55-90 bpm] 78 bpm (03/06/21 12:52 PM) 80 bpm (03/06/21 9:35 AM) 71 bpm (03/06/21 4:47 AM) Body Mass Index [18.5-24.99] 26.46 *H* (03/04/21 1:13 PM) Blood Pressure [80-130/50-80 mm Hg] 127/79mm Hg (03/06/21 12:52 PM) 112/68mm Hg (03/06/21 9:35 AM) 117/69mm Hg (03/06/21 4:47 AM) Respiratory Rate [16-30 br/min] 19 br/min (03/06/21 12:52 PM) 20 br/min (03/06/21 9:35 AM) 18 br/min (03/06/21 4:47 AM) Temperature [96.8-100.4 DegF] 98.2 DegF (03/06/21 12:52 PM) 98.2 DegF (03/06/21 9:35 AM) 98.6 DegF (03/06/21 4:47 AM) Mode of Delivery (Oxygen) Room air (03/06/21 12:52 PM) Room air (03/06/21 9:35 AM) Room air (03/06/21 4:47 AM) Blood pressure sites Arm, left (03/06/21 12:52 PM) Arm, left (03/06/21 9:35 AM) Arm, left (03/06/21 4:47 AM) Temperature Route Oral (03/06/21 12:52 PM) Oral (03/06/21 9:35 AM) Oral (03/06/21 4:47 AM) Dry Weight 72.2 kg (03/04/21 9:38 PM) 71.6 kg (03/04/21 1:13 PM) Weight Obtained Via Standing scale (03/04/21 1:13 PM) Dry Weight Obtained Via Standing scale (03/04/21 9:38 PM) Standing scale (03/04/21 1:13 PM) Social History Social History Type Response Smoking Status Never (less than 100 in lifetime); Tobacco user in household: No entered on: 03/04/21 Sex
--- OUTSIDE RECORDS SUMMARY | 2024-06-01 00:32 | XMS_ITS | Continuity of Care Document ---
Author Organization [facility] Address [address] [place] [address]- Care Team Providers Care Working Second Hand Name Role Phone Heena Lopez MD Primary Care Physician Encounter [facility] Date(s): 05/16/22 - 06/28/[address] [address] Attending Physician: Not on Staff, Attending MD [...] Confirmed Active Maternal varicella, non-immune Confirmed Active Procedures Procedure Date Related Diagnosis Body Site Status Appendectomy 09/2003 Completed Vital Signs Most recent to oldest [Reference Range]: 1 Height 164.5 cm (05/29/22 1:11 PM) Blood Pressure [71-110/30-71 mm Hg] 106/ 64mm Hg (05/29/22 1:11 PM) Blood pressure sites Arm, left (05/29/22 1:11 PM) Dry Weight 74.3 kg (05/29/22 1:11 PM) Social History Social History Type Response Smoking Status Never (less than 100 in lifetime); Tobacco user in household: No entered on: 03/04/21 Sex Patient Care team information Personnel Name: Heena Lopez MD Address: Address: [address] [place] [address] Pediatric [place], [place] [address]
--- OUTSIDE RECORDS SUMMARY | 2024-06-01 00:32 | XMS_ITS | Continuity of Care Document ---
Author Organization [facility] Address [address] [place] [address]- Care Team Providers Care Forensic Economist Name Role Phone Rounds Heena STANTON Primary Care Physician [phone] Encounter [facility] Date(s): 01/01/23 - 01/31/[address] [address] Attending Physician: Fernanda Chou Admitting Physician: Fernanda [...] to Pharmacy Electronically, [facility]/pharmacy #[id number], Partial fill upon patient request if the [...] Pediatrics MD Member Role: PCP Address: Address: [address] [place] [address] [place] [address]- Care Team Related Persons Name: AGNIESZKA FRANCISCO Address: [employer] Address: [address] [address] [place] Name: BERHANE VENTURA Address: [address] [address] Name: GREGOR VENTURA Address: [address] [address]
== END 2024-06-01 00:39 | disposition left against medical advice (07) ==
PROVIDERS: Emergency Provider Emergency Medicine
DX: R10.9 Unspecified abdominal pain (principal)

== ENCOUNTER 2025-06-17 17:01 | Emergency (ER) | payer OTHER, SELFPAY ==
[2025-06-17 17:10] VITALS: BP 134/76; PULSE 77; RESP 18; TEMP 37; O2SAT 99; BMI 25.4
--- NOTE | 2025-06-17 17:12 | ED_ITS ---
HPI - Nausea/Vomiting/Diarrhea General Chief complaint: Nausea/Vomiting/Diarrhea Stated complaint: ?Alcohol poisoning/Dehydrated Time Seen by Provider: 06/17/25 20:12 Source: patient, RN notes reviewed and old records reviewed Mode of arrival: ambulatory Limitations: no limitations History of Present Illness ED Provider: Rodrick WEI Narrative: 19-year-old female with a past medical history significant for appendectomy, ovarian cyst presents for evaluation of nausea and vomiting. Patient reports drinking to excess last night. She reports vomiting since 4:00 a.m. this morning. She has recently been able to tolerate a few sips of Gatorade but otherwise has not been able eat or drink anything throughout the day today. She reports some minor abdominal discomfort Vaginal bleeding or discharge pain Denies any urinary complaints pain She complains of a mild headache pain Denies any fevers or chills No other complaints or concerns at this time Associated nausea: Yes Related Data Previous Rx's ?Medication ?Instructions ?Recorded lorazepam 0.5 mg tablet (Ativan) 0.5 mg PO TID PRN anx iety #7 tabs 03/04/21 omeprazole 20 mg capsule,delayed 20 mg PO DAILY #14 ca ps 03/04/21 release ondansetron 4 mg disintegrating 4 mg PO Q6-8H PRN naus ea and 03/04/21 tablet vomiting #7 tabs tramadol 50 mg tablet 50 mg PO Q6H PRN pain #14 ta bs 03/04/21 vitamins no.154-ferrous 1 tab PO DAILY 3 rand hs #90 tabs 04/04/22 fumarate 27 mg-folic acid 1 mg tablet ondansetron 4 mg disintegrating 4 mg PO Q8H PRN nausea and 06/17/25 tablet vomiting #20 tabs Allergies Allergy/AdvReac Type Severity Reaction Status Date / Time No Known Allergies (No Known Allergy Verified 06/17/25 17:12 Allergies*) Review of Systems 2 Constitutional: Constitutional: Denies body ache(s), Denies chills, Denies fever(s), Denies frequent falls and Reports headache(s) Eyes: Eyes: Denies blurry vision ENT: Denies vertigo, Denies dizziness, Denies dry mouth and Reports headache(s) Cardiovascular: Cardiovascular: Denies chest pain Respiratory: Respiratory: Denies cough Gastrointestinal: Gastrointestinal: Reports abdominal pain, Denies hematochezia, Denies diarrhea, Denies loose stools, Reports nausea and Reports vomiting Musculoskeletal: Musculoskeletal: Denies back pain Integumentary/Breasts: Skin/Breast: Denies rash Neurologic: Denies vertigo, Denies dizziness, Denies frequent falls and Reports headache(s) Psychiatric: Psychiatric: Denies anxiety PMFSH Past Medical History Medical History No active medical problems Surgical History History of appendectomy Social History Social History Alcohol intake: never Patient Tobacco Use Status: Never used Tobacco Advance Directives: No Advance Directives Information Provided: No Physical Exam 2 Vital Signs: Vital Signs: Last Vital Signs Temp 98.6 F 06/17/25 17:10 Pulse 89 06/17/25 21:17 Resp 18 06/17/25 21:17 BP 105/54 L 06/17/25 21:17 Pulse Ox 98 06/17/25 21:17 O2 Del Method Room Air 06/17/25 21:17 BMI result Body Mass Index 25.4 Const: General: healthy appearing, comfortable, no acute distress, alert and awake Nutritional Appearance: well nourished Orientation/consciousness: p atient oriented x3 HEENT: Head: Yes normocephalic and Yes atraumatic Eyes: Eyelids: Yes eyelids normal Conjunctivae: conjunctivae normal S clerae: sclerae normal Corneas: corneas normal Pupils: Equal, round and reactive pupils present EOM: EOMs intact bilaterally Neck: Neck: Yes full ROM Resp: Effort & Inspection: normal respiratory effort, able to speak in complete sentences and not labored Cardio: Rate: regular rate Rhythm: regular rhythm GI: Inspection: No distended Palpation (GI): Soft to palpation, not firm, Tenderness to palpation present (GI) in the LLQ, in the RLQ and suprapubicly, no guarding and not rigid Skin: General skin exam: elasticity normal Neuro: General: patient oriented x3 Cranial nerves: Yes Equal, round and reactive pupils present and Yes Bilaterally intact EOM present Cognition (Neuro): normal cognition Course Course Course Narrative: This is an RME: Additional HPI, ROS, PE not included below will be deferred to primary provider. RME assessment and note performed by: Lisha Rod PA-C This is a 19-year-old female who presents emergency department with concerns of nausea and vomiting. She states that she was drinking last night and has been unable to keep anything down. Also endorsing some bilateral lower abdominal pain. Plan: Labs, UA, further ER eval needed Medications Administered Discontinued Medications Generic Name Dose Route Start Last Admin Trade Name Itzel PRN Reason Stop Dose Admin Lactated Ringer's 1,000 mls @ 999 mls/hr 06/17/25 20:30 06/17/25 21:03 Lr IV 06/17/25 21:30 999 mls/hr .Q1H1M YOUNG Administration Ondansetron HCl 4 mg 06/17/25 20:18 06/17/25 21:03 Ondansetron Hcl 4 Mg/2 Ml Vial IVPUSH 06/17/25 20:19 4 mg ONCE ONE Administration Medical Decision Making Medical Decision Making [facility] Narrative: 19-year-old female presents for evaluation of nausea and vomiting. She has complain of mild abdominal discomfort and has mild lower abdominal tenderness on exam. She is status post appendectomy. She has no symptoms, denies any vaginal bleeding or discharge. She is not . Your symptoms may be related to a gastroenteritis versus gastritis. She is quite well appearing, she has a mild leukocytosis to 12.8 1000. There was a left shift. I have a low suspicion for surgical abdomen giving her reassuring exam. Chemistries are reassuring. She is not clinically dehydrated. Vital signs are stable. We will treat with IV fluids and IV Zofran and re-evaluate. We will defer advanced imaging at this time. Differential Diagnosis Differential Diagnoses: The differential diagnosis associated with the presentation includes Gastritis Gastroenteritis DAVID Dehydration Peptic ulcer disease UTI Cystitis Lab Data [facility] Lab Attestation statement: I reviewed the patient's lab results. Mild leukocytosis with a left shift. No anemia. Normal platelet count. No significant electrolyte abnormalities warranting intervention. 06/17/25 17:27 06/17/25 17:27 Labs: Lab Results 06/17/25 Range/Units 17:27 WBC 12.8 H (4.8-10.8) X10*3/uL RBC 4.64 (4.20-5.50) X10*6/uL Hgb 13.9 (12.0-16.0) g/dl Hct 42.1 (37.0-47.0) % MCV 90.7 (80.0-98.0) fL MCH 30.0 (27.0-33.0) pg MCHC 33.0 (31.0-35.0) g/dl RDW 13.0 (11.0-16.0) % Plt Count 315 D (160-400) X10*3/uL MPV 9.4 (9.4-12.3) fL Immature Gran % (Auto) 0.2 (0.0-0.4) % Neut % (Auto) 93.2 H (45-73) % Lymph % (Auto) 4.7 L (20-40) % Os[place] % (Auto) 1.7 L (2-11) % Eos % (Auto) 0.0 (0-4) % Baso % (Auto) 0.2 (0-2) % Lymph # (Auto) 0.6 L (1.2-4.9) X10*3/uL [place] # (Auto) 0.2 (0.1-1.2) X10*3/uL Eos # (Auto) 0.0 (0.0-0.4) X10*3/uL Baso # (Auto) 0.0 (0.0-0.2) X10*3/uL Abs Immat Gran (auto) 0.03 (0.00-0.03) X10*3/uL Absolute Neuts (auto) 11.9 H (2.0-8.3) x10*3/uL Absolute Nucleated RBC 0.000 (0.0-0.012) X10*3/uL Nucleated RBC % (auto) 0.0 (0.0-0.2) /100WBC Smear Tech's Comments VERIFIED Sodium 141 (135-145) mmol/L Potassium 4.5 (3.3-5.1) mmol/L Chloride 107 (96-108) mmol/L Carbon Dioxide 23 (22-29) mmol/L Anion Gap 16 (12-20) BUN 11 (9-16) mg/dL Creatinine 0.75 (0.5-1.4) mg/dL Estim Creat Clear Calc 120.0 Estimated GFR > 60 Random Glucose 135 H (60-115) mg/dL Calcium 9.7 D (8.4-10.2) mg/dL Magnesium 1.7 (1.6-2.6) mg/dL Total Bilirubin 0.2 (0.0-1.0) mg/dL Direct Bilirubin < 0.2 (0.0-0.5) mg/dL AST 27 (5-31) U/L ALT 18 (0-31) U/L Alkaline Phosphatase 76 (39-117) U/L Total Protein 8.8 H (6.5-8.0) g/dL Albumin 4.9 (3.5-5.0) g/dL Lipase 7 L (8-78) U/L Beta HCG, Quant < 2 mIU/mL Discharge Plan Discharge Clinical Impression: Acute nausea with nonbilious vomiting Patient Disposition: Home, Self-Care Instructions: Acute Nausea and Vomiting (ED) Additional Instructions: Avoid excessive consumption of alcohol. Your blood work was reassuring. You may use Zofran as needed for nausea and vomiting. Follow up with your primary doctor, return for new or worsening signs Prescriptions: New ondansetron 4 mg tablet,disintegrating 4 mg PO Q8H PRN (Reason: nausea and vomiting) Qty: 20 0RF No Action ondansetron 4 mg tablet,disintegrating 4 mg PO Q6-8H PRN (Reason: nausea and vomiting) Qty: 7 0RF lorazepam [Ativan] 0.5 mg tablet 0.5 mg PO TID PRN (Reason: anxiety) Qty: 7 0RF omeprazole 20 mg capsule,delayed release(DR/EC) 20 mg PO DAILY Qty: 14 0RF tramadol 50 mg tablet 50 mg PO Q6H PRN (Reason: pain) Qty: 14 0RF PNV no.154-iron fumarate-folic 27 mg iron- 1 mg tablet 1 tab PO DAILY 90 Days Qty: 90 0RF Print Language: Cypriot
[2025-06-17 17:33] LABS: Hematocrit 42.1 % (37.0-47.0); Hemoglobin 13.9 g/dl (12.0-16.0); Imm Gran Abs Auto 0.03 X10*3/uL (0.00-0.03); Imm Gran Pct Auto 0.2 % (0.0-0.4); Lymphocytes Absolute Auto 0.6 X10*3/uL (1.2-4.9); MANUAL DIFF FLAG SCAN; Mean Corpuscular HGB Conc 33.0 g/dl (31.0-35.0); Mean Corpuscular Hemoglobin 30.0 pg (27.0-33.0); Mean Corpuscular Volume 90.7 fL (80.0-98.0); NRBC Abs Auto 0.000 X10*3/uL (0.0-0.012); NRBC Pct Auto 0.0 /100WBC (0.0-0.2); Platelet Count 315 X10*3/uL (160-400); Red Blood Count 4.64 X10*6/uL (4.20-5.50); SCAN SMEAR FLAG 1; White Blood Count 12.8 X10*3/uL (4.8-10.8)
[2025-06-17 17:57] LABS: Alanine Aminotransferase 18 U/L (0-31); Albumin Level 4.9 g/dL (3.5-5.0); Alkaline Phosphatase 76 U/L (39-117); Anion Gap 16 (12-20); Aspartate Amino Transferase 27 U/L (5-31); Blood Urea Nitrogen 11 mg/dL (9-16); Calcium 9.7 mg/dL (8.4-10.2); Carbon Dioxide 23 mmol/L (22-29); Chloride 107 mmol/L (96-108); Creatinine Clr Calc Pharmacy 120.0; Estimated Glomerular Filt Rate > 60; Lipase 7 U/L (8-78); Magnesium 1.7 mg/dL (1.6-2.6); Potassium 4.5 mmol/L (3.3-5.1); Sodium 141 mmol/L (135-145); Total Protein 8.8 g/dL (6.5-8.0)
[2025-06-17] MEDS: Lactated Ringers 1,000 ML 999 ML IV (21:03)
--- NOTE | 2025-06-17 21:05 | PC.NURSE ---
Iv started at left ac, medicated per nov, notified primary nurse Kavya.
[2025-06-17 21:17] VITALS: BP 105/54; PULSE 89; RESP 18; O2SAT 98
[2025-06-17 21:55] VITALS: BP 105/54; PULSE 89; RESP 18; TEMP 36.6; O2SAT 98
[2025-06-17 21:58] LABS: Appearance Urine Clear; Glucose Urine UA Negative (Negative); PH 7.0 (5.0-9.0); Specific Gravity - Urine >= 1.030 (1.005-1.025); UMIC TRIGGER UACC YES
[2025-06-17 22:07] LABS: Cannabinoid Screen Urine POSITIVE (Not Detect)
== END 2025-06-17 22:00 | disposition home or self-care (01) ==
PROVIDERS: Physician Assistant; Physician Assistant Medical; Emergency Provider Emergency Medicine
DX: R11.2 Nausea with vomiting, unspecified (principal); R10.22 Pelvic and perineal pain left side; E86.0 Dehydration; R51.9 Headache, unspecified; Z51.81 Encounter for therapeutic drug level monitoring; Z79.899 Other long term (current) drug therapy
CPT/HCPCS: 36415; 80048; 80076; 80307; 81001; 83690; 83735; 84702; 85025; 96361; 96374; 99284; J2405; J7120

== ENCOUNTER 2025-08-11 13:55 | Emergency (ER) | payer SELFPAY ==
--- OUTSIDE RECORDS SUMMARY | 2025-08-11 21:31 | XMS_ITS | Encounter Summary ---
Author Organization [facility] Address [address] [place] [address] Phone Care Team Providers Care Patient Attendant Name Role Phone Heena Lopez MD Primary Care Provider [phone] Encounter Details Date Type Department Care Team (Late st Contact Info) Description 11/18/2010 Documentation [facility] Family Medicine [address] [place] [address] Family Medicine, Physician [address], [place] [id number] Social History Tobacco Use Types Packs/Day Years Used Date Smoking Tobacco: Never Assessed Comments Unknown Sex and Gender Information Value Date Recorded Sex Assigned at Female 05/25/2020 10:43 PM EDT Legal Sex Female 5:07 PM EDT Gender Identity Female 05/25/2020 10:43 PM EDT Sexual Orientation Straight 05/25/2020 10 :43 PM EDT documented as of this encounter Plan of Treatment Not on file documented as of this encounter Visit Diagnoses Not on filedocumented in this encounter Care Teams Patient Attendant Relationship Specialty Start Date End Date Heena Lopez MD [address] [place] [address] PCP - General Pediatrics 04/13/20 06/24/23 documented as of this encounter
--- OUTSIDE RECORDS SUMMARY | 2025-08-11 21:31 | XMS_ITS | Encounter Summary ---
Author Organization [facility] Address [address] [place] [address] Phone Care Team Providers Care Vamp Throater Name Role Phone Heena Lopez MD Primary Care Provider [phone] Encounter Details Date Type Department Care Team (Late st Contact Info) Description 11/09/2010 Documentation [facility] [address] [place] [address] Family Medicine, Physician [address] [id number] Social History Tobacco Use Types Packs/Day Years [...] on filedocumented in this encounter Care Teams Vamp Throater Relationship Specialty Start Date End Date Heena Lopez MD [address] [place] [address] PCP - General Pediatrics 04/13/20 06/24/23 documented as of this encounter
--- OUTSIDE RECORDS SUMMARY | 2025-08-11 21:31 | XMS_ITS | Encounter Summary ---
Author Organization [facility] Address [address] [place] [address] Phone Care Team Providers Care Transfer Station Operator Name Role Phone Heena Lopez MD Primary Care Provider [phone] Encounter Details Date Type Department Care Team (Late st Contact Info) Description 04/24/2017 Conversion Encounter [facility] [address] [place] [address] Social History Tobacco Use Types Packs/Day Years Used Date Smoking Tobacco: Never Comments:Never smoker Comments Unknown Sex and Gender Information Value [...] on filedocumented in this encounter Care Teams Transfer Station Operator Relationship Specialty Start Date End Date Heena Lopez MD [address] [place] [address] PCP - General Pediatrics 04/13/20 06/24/23 documented as of this encounter
--- OUTSIDE RECORDS SUMMARY | 2025-08-11 21:31 | XMS_ITS | Encounter Summary ---
Author Organization [facility] Address [address] [place] [address] Phone Care Team Providers Care Patient Support Associate Name Role Phone Heena Lopez MD Primary Care Provider [phone] Encounter Details Date Type Department Care Team (Late st Contact Info) Description 03/05/2010 [place] [facility] [place] [address] [place] [address] Family Medicine, Physician [address] [phone] Social History Tobacco Use Types Packs/Day Years [...] filedocumented in this encounter Care Teams Patient Support Associate Relationship Specialty Start Date End Date Heena Lopez MD [address] [place] [address] PCP - General Pediatrics 04/13/20 06/24/23 documented as of this encounter
--- OUTSIDE RECORDS SUMMARY | 2025-08-11 21:31 | XMS_ITS | Clinical Summary ---
Author Organization [facility] Address [address] [place] [id number] Phone Care Team Providers Care Mines Safety Engineer Name Role Phone Unavailable Primary Care Provider Unavailabl e Allergies No known active allergies Medications No known medications Active Problems Problem Noted Date Diagnosed Date 04/06/2022 Overview (04/06/2022): 04/04/2022: 9 wks 2 days History of chlamydia 06/09/2021 Overview (08/23/2021): 08/23/2021 (age 16yr): Pt has not yet had visit for [facility]. See phone call from today. Detailed History and Chronology of care: 04/13/2019: Pos chlamydia, treated 03/06/2021: [place] [facility] [place] Chlam[place] PID Seasonal allergies 04/19/2020 Overview (04/19/2020[facility] Overweight, pediatric, BMI 85.0-94.9 percentile for age 0311/20/2010 Resolved Problems Problem Noted Date Diagnosed Date Resolved Date Asthma 11/21/2009 04/13/2019 Immunizations Immunization Administration Dates Next Due DTaP 5 10/13/2007, 5,02/09/2004,12/07,2003 HPV Vaccine 9 Valent 02/20/2016,10/04/2015 HPV, Quadrivalent 02/14/2015 Hep A, ped/adol 10/04/2015,02/14/2015 Hep B, ped/adol 05/21/2004,02/09/2004,2003 Hib (HbOC) 11/15/2004 Hib (PRP-T) 02/09/2004,2003,2003 IPV 10/13/2007, 4,2003,10/11 Influenza Split 07/28/2012,07/25/2011,11/20/2010 Influenza, injectable, quadrivalent 10/04/2015 Influenza, injectable, quadr ivalent, preservative free 05/25/2020,08/11/2017,12/22/2013 Influenza, injectable, trivalent 09/18/2006,09/08 MMR 10/04/2004 MMRV 10/13/2007 Meningococcal Conj (Menactra) MCV4P 05/25/2020,0 02/14/2015 Pneumococcal Conjugate 11/15/2004,2003,2003,10/11 Tdap 02/14/2015 Varicella 10/04/2004 Family History Medical History Relation Name Comments No Known Problems Half-Sister Constanza No Known Problems Mother Florence Relation Name Status Comments Father Carlos Alive Half-Sister Constanza Alive Half sister (M) : Alive and well Mother Florence Alive Mother: Alive a nd well Other Family history of Asthma Social History Tobacco Use Types Packs/Day Years Used Date Smoking Tobacco: Never Smokeless Tobacco: Never Comments:Never smoker Alcohol Use Standard Drinks/Week Comments No 0 (1 standard drink = 0.6 oz pur e alcohol) Hunger/Food Answer Date Recorded In the last 12 months, did y ou or your family ever eat less than you felt you should because there wasn't enough money for food? No 05/25/2020 Stable Housing Answer Date Recorded Are you worried that in the next 2 months you may not have stable housing? No 05/25/2020 Transportation Concerns Answer Date Rec orded In the last 12 months, have you or your family ever had to go without healthcare because you didn't have a way to get there? No 05/25/2020 Hazards in Home Answer Date Recorded Think about the place you li ve. Do you have problems with any of the following? Pests (mice or roaches), mold, no/not working smoke detectors, water leaks, no window guards. No 2019 Financing Utilities Answer Date Recorde d In the last 12 months, has t he electric, gas, oil, or water company threatened to shut off your services in your home? No 05/25/2020 Safety at Home Answer Date Recorded Are you or your family worried about feeling saf e in your home? No 05/25/2020 Outside Support Answer Date Recorded Do you feel that you need mo re support from other people or programs to help you care for yourself or your family? No 05/25/2020 Understanding Health Concerns Answer Da te Recorded Do you need help understandi ng your or your child's healthcare needs (diagnosis, medications, plan, etc.)? No 05/25/2020 Financing Health Concerns Answer Date R ecorded In the last 12 months, was t here a time when your child needed to see a doctor or get medications or supplies but could not because of cost? No 05/25/2020 Missing School or Work Answer Date Kwan rded Did you or your child miss s chool or work because of a health problem that could have been avoided? No 05/25/2020 Comments No Sex and Gender Information Value Date Recorded Sex Assigned at Female 05/25/2020 10:43 PM EDT Legal Sex Female 5:07 PM EDT Gender Identity Female 05/25/2020 10:43 PM EDT Sexual Orientation Straight 05/25/2020 10 :43 PM EDT Last Filed Vital Signs Vital Sign Reading Time Taken Comments Blood Pressure 103/62 05/25/2020 6:05 PM EDT Pulse 74 05/25/2020 6:05 PM EDT Temperature 36.3 C (97.3 F) 05/25/2020 6:05 PM EDT Respiratory Rate - - Oxygen Saturation - - Inhaled Oxygen Concentration - - Weight 75.3 kg (166 lb) 05/25/2020 6:05 PM EDT Height 161.9 cm (5' 3.75 ) 05/25/2020 6:05 PM ED T Body Mass Index 28.72 05/25/2020 6:05 PM EDT Plan of Treatment Health Maintenance Due Date Last Done Comments Men B Vaccine (1 of 2 - Standard) 2019 DTaP,Tdap,and Td Vaccines (7 - Td or Tdap) 02/14/2025 02/14/2015, 10/13/2007, 03/05/2005, Additional history exists Influenza Vaccines (#1) 2025 07/09/20 22, 05/25/2020, 08/11/2017, Additional history exists COVID-19 Vaccine (2024-10 6 season) 2025 11/06/2021, 10/02/2021 Hepatitis B Vaccines Completed 05/21/2004, 02/09/2004, 2003 HIB Vaccines Completed 11/15/2004, 11/2003, 2003, Additional history exists Pneumococcal Vaccine Completed 11/15/2004, 05/21/2004, 2003, Additional history exists IPV Vaccines Completed 10/13/2007, 05/09, 2003, Additional history exists MMR Vaccines Completed 10/13/2007, 10/04/2004 Varicella Vaccines Completed 10/13/2007, 10/04/2004 Hepatitis A Vaccines Completed 10/04/2015, 02/15/20 15 HPV Vaccines Completed 02/20/2016, 09/09, 02/14/2015 Meningococcal Vaccine Completed 05/25/2020, 015 Procedures * Due to [place] [employer] law, this organization might not be sharing sensitive test results. Procedure Name Priority Date/Time Associated Diagnosis Comments CHLAMYDIA AND GONORRHEA, AMPLIFIED Routine 09/22/2019 2:35 PM EST Screening examination for bacterial and spirochetal disease from Last 3 Months or Most Recently Relevant to Health Maintenance Results * Due to [place] [employer] law, this organization might not be sharing sensitive test results. * Chlamydia and Gonorrhoea, Amplified (09/22/2019 2:35 PM EST) Chlamydia Trachomatis, DNA Probe NEGATIVE (NEG) [facility] Comment: No Chlamydia Trachomatis RNA detected in this patient's sample (REFERENCE RANGE/NORMAL VALUE: NOT DETECTED) Note: This test uses maintenance man- mediated amplification method to detect rRNA from C. Trachomatis URINE GC AMP PROBE NEGATIVE (NEG) [facility] Comment: No Neisseria Gonorrhoeae RNA detected in this patient's sample (REFERENCE RANGE/NORMAL VALUE: NOT DETECTED) NOTE: This test uses maintenance man-mediated amplification method to detect rRNA from N.Gonorrhoeae. A negative result does not preclude infection. In the case of a negative urine result, testing of an endocervical(female) or urethral (male) specimen is recommended if there is high clinical suspicion of infection. Due to very high sensitivity of Nucleic Acid Amplification Test, false positive results may occur. Therefore, specimen handling is extremely important. In patients in whom the disease is unlikely, additional sample for testing should be considered after an initial positive result. The performance characteristics of this test have not been evaluated in children. The Aptima Combo2 assay is not intended for the evaluation of suspected sexual abuse or for other medico-legal indications. The ordering provider should assess if the patient had consensual sex without risk of sexual abuse. Consult the [facility] if needed. Contact phone number . Therapeutic failure or success cannot be determined with the Aptima Combo2 assay since nucleic acid may persist following appropriate antimicrobial therapy. The Centers for Disease Control and Prevention (CDC) recommends confirmatory retesting using culture or a different nucleic acid amplification test when positive results occur, if indicated. Testing performed or reported by [facility], a Service of [facility], [facility] [place] [address] Gregorio Dong MD, [employer]fuels Technology Development Manager Urine 09/22/2019 2:35 PM EST 09/22/2019 8:17 PM EST us Lenora George NP LAB MICROBIOLOGY - GENERAL OR DERABLES Final Result [facility] from Last 3 Months or Most Recently Relevant to Health Maintenance
--- OUTSIDE RECORDS SUMMARY | 2025-08-11 21:31 | XMS_ITS | Clinical Summary ---
Author Organization [facility] it Address [address] [place] [address] Care Team Providers Care Cis Coordinator Name Role Phone Unavailable Primary Care Provider Unavailabl e Social History Tobacco Use Types Packs/Day Years Used Date Smoking Tobacco: Never Assessed Comments Unknown Sex and Gender Information Value Date Recorded Sex Assigned at Not on file Legal Sex Female 9:06 AM EST Gender Identity Not on file Sexual Orientation Not on file Plan of Treatment Health Maintenance Due Date Last Done Comments Gonorrhea/Chlamydia Screening 2003 HPV Vaccines (1 - 3-dose series) 2018 Meningococcal B Vaccine (1 o f 2 - Standard) 2019 DTaP,Tdap,and Td Vaccines (1 - Tdap) 2022 Hepatitis B Vaccines (1 of 3 - 19+ 3-dose series) 2022 Cervical Cancer Screening: P ap Smear 2024 Depression Screening 09/08/2024 COVID-19 Vaccine (1 - 2024-2 6 season) 2025 Influenza Vaccine (#1) 2025 RSV Immunization Adult Patie nts (1 - 1-dose 75+ series) 2078 HIB Vaccines Aged Out No longer eligi ble based on patient's age to complete this topic Hepatitis A Vaccines Aged Out No long er eligible based on patient's age to complete this topic IPV Vaccines Aged Out No longer eligi ble based on patient's age to complete this topic MMR Vaccines Aged Out No longer eligi ble based on patient's age to complete this topic Meningococcal ACWY Vaccine Aged Out N o longer eligible based on patient's age to complete this topic Pneumococcal Vaccine: Pediat rics (0 to 5 Years) and At-Risk Patients (6 to 49 Years) Aged Out No longer eligible b ased on patient's age to complete this topic RSV Immunization Patients Un gilmer 20 months Aged Out No longer eligible b ased on patient's age to complete this topic Varicella Vaccines Aged Out No longer eligible based on patient's age to complete this topic
--- OUTSIDE RECORDS SUMMARY | 2025-08-11 21:31 | XMS_ITS | Encounter Summary ---
Author Organization [facility] Address [address] [place] [address] Phone Care Team Providers Care Hairspring Adjuster Name Role Phone Heena Lopez MD Primary Care Provider [phone] Encounter Details Date Type Department Care Team (Late st Contact Info) Description 04/06/2013 Documentation [facility] [place] Medicine [address] [place] [address] Family Medicine, Physician [address], [place] [phone] Social History Tobacco Use Types Packs/Day Years [...] on filedocumented in this encounter Care Teams Hairspring Adjuster Relationship Specialty Start Date End Date Heena Lopez MD [address] [place] [address] PCP - General Pediatrics 04/13/20 06/24/23 documented as of this encounter
== END 2025-08-11 15:19 | disposition left against medical advice (07) ==
LOC: HO.ED 15:17
PROVIDERS: Emergency Provider Emergency Medicine
DX: Z13.39 Encounter for screening examination for other mental health and behavioral disorders (principal)